=== PATIENT | female | born 1990 | race Caucasian/White ===

== ENCOUNTER 2020-06-22 13:46 | Outpatient (REF) | payer OTHER, SELFPAY | END 2020-06-22 13:47 | disposition home or self-care (01) | LOC: HO.LAB 13:46 | PROVIDERS: PCP Internal Medicine; Visit Provider Internal Medicine | DX: Z20.828 Contact with and (suspected) exposure to other viral communicable diseases (principal) | CPT/HCPCS: C9803; U0003 ==

== ENCOUNTER 2020-08-19 09:52 | Outpatient (REF) | payer OTHER, MEDICAID, SELFPAY ==
--- NOTE | ~2020-08-19 | XR_ITS ---
EXAMINATION: XR ANKLE, LEFT CLINICAL INFORMATION: Left ankle pain. COMPARISON: None TECHNIQUE: AP, lateral, and mortise views of the left ankle. FINDINGS: Mild asymmetric soft tissue swelling is seen laterally. No acute fracture or dislocation is seen. The ankle joint and mortise are intact. The tarsal bones are normally aligned. XR/XR ankle LT min 3V IMPRESSION: Mild asymmetric lateral soft tissue swelling without acute underlying abnormality.
== END 2020-08-19 09:53 | disposition home or self-care (01) ==
LOC: HO.HOSX 09:52
PROVIDERS: Visit Provider Physician Assistant
DX: S93.402A Sprain of unspecified ligament of left ankle, initial encounter (principal)
CPT/HCPCS: 73610; 99202

== ENCOUNTER 2020-09-28 09:55 | Outpatient (RCR) | payer OTHER, SELFPAY ==
--- NOTE | 2020-09-28 12:40 | MHC.PT.EP ---
[facility] [place] [facility] [place] [facility] [place] Office [address] Troy Herrera [address] [phone] F: [phone] F: [phone] F: [phone] F: [phone] Physical Therapy Plan of Care Date of Evaluation: 09/28/20 Date of Surgery: N/A Diagnosis: Sprain of Unspecified Ligament of Unspecified Ankle L Ankle Sprain Assessment: Gretchen is a 30-year-old female being referred to physical therapy following a sprain of her L ankle after slipping on black ice. She presents with deficits in LE strength, L Ankle ROM, impaired gait and impaired posture. She would benefit from skilled physical therapy to address the aforementioned impairments and increase her tolerance to standing, walking, stair-climbing, and running as needed for ADLs, work duties, and playing softball. Gretchen is motivated to participate in therapy to eliminate her ankle pain and enable her to return to her PLOF. Frequency and Duration: The patient will be seen 2 visits per week for 4 weeks Short Term Goals: -Pt will ambulate with proper gait mechanics and equal weight-bearing through her B LE within 2 weeks. -Pt will be able to work an 8-hour shift with <2/10 pain in her ankle within 3 weeks. Wet End Helper Goals: -Pt will be able to participate in a full softball game with <2/10 pain in her ankle within 4 weeks. -Pt will be independent with [facility] for symptom management and maintenance following discharge within 4 weeks. Treatment Plan: Modalities to reduce pain, spasms and effusion. Manual therapy to restore motion and function. Therapeutic exercise to improve strength and flexibility. Neuromuscular re-education for posture and balance. Therapeutic activities to return to functional activities of daily living. Electronically signed by: Judy Rangel, PT, DPT Please sign and return to therapist. Thank you for your referral.
--- NOTE | 2020-11-01 15:42 | MHC.PT.DC ---
[facility] [place] Office [place] Office [place] Office [address] Her[address] 140 [facility] [phone] F: [phone] F: [phone] F: [phone] F: [phone] Physical Therapy Discharge Report Diagnosis: Sprain of Unspecified Ligament of Unspecified Ankle L Ankle Sprain Date of Surgery: N/A Date of Evaluation: 09/28/20 Date of Discharge: 11/01/20 Treatments to Date: 1 Cancellations to Date: 0 No Shows to Date: 0 Discharge Status: Patient Elected to Stop Discharge Summary: Gretchen did not make any PT appointments after her evaluation. Attempted to call her several times for appointments but she did not return any calls. She was therefore d/c from therapy. Electronically signed by: Judy Rangel, PT, DPT Please sign and return to therapist. Thank you for your referral.
== END 2020-11-01 15:42 | disposition other institution (70) ==
LOC: HO.PT 09:55
PROVIDERS: PCP Internal Medicine; Visit Provider Physician Assistant
DX: S93.409A Sprain of unspecified ligament of unspecified ankle, initial encounter (principal)
CPT/HCPCS: 97110; 97140; 97161

== ENCOUNTER 2021-07-20 13:14 | Emergency (ER) | payer OTHER, SELFPAY ==
--- NOTE | ~2021-07-20 | XR_ITS ---
EXAMINATION: XR LUMBOSACRAL SPINE CLINICAL INFORMATION: Slip and fall with back pain COMPARISON: None TECHNIQUE: Three views of the lumbosacral spine. FINDINGS: There are 5 nonrib bearing lumbar vertebra. The bony texture and alignment is satisfactory. No acute fracture, spinal listhesis, spondylolysis. Pedicles intact. Disc spaces maintained. Sacroiliac joints unremarkable. XR/XR lumbar spine 2-3V IMPRESSION: No acute fracture, spondylolisthesis, or spondylolysis of lumbar spine.
[2021-07-20 14:30] VITALS: BP 122/82; PULSE 80; RESP 19; TEMP 36.6; O2SAT 98; BMI 26.1
[2021-07-20] MEDS: Ibuprofen 600 MG TABLET PO (14:37)
[2021-07-20 15:56] VITALS: BP 114/73; PULSE 68; RESP 18; TEMP 36.5; O2SAT 99
--- NOTE | 2021-07-20 16:24 | ED.BACK ---
HPI - Back Pain/Injury General Chief Complaint: Back Pain/Injury Stated Complaint: Lower back pain/sent from urgent care Time Seen by Provider: 07/20/21 15:49 Source: patient Mode of arrival: ambulatory Limitations: no limitations History of Present Illness HPI Narrative: 30-year-old female with a history of chronic back pain here with reports of lower back pain after slip and fall on the ice 2 days ago. Patient tells me that she went to [facility] and was told that her x-ray was abnormal and she was sent into the ER for further evaluation. She denies any radiation of pain. She denies any associated numbness, tingling, saddle anesthesia, bowel or bladder incontinence. No fevers or chills and the patient is ambulatory. Related Data Home Medications Medication Instructions Recorded Confirmed citalopram [Celexa] PO 08/19/20 dupilumab 200 mg/1.14 mL 200 mg SUBCUT Q2W 08/19/20 subcutaneous syringe (Dupixent) topiramate PO 08/19/20 Previous Rx's Medication Instructions Recorded lidocaine 5 % topical patch 1 patch TOPICAL DAILY #15 ea 07/20/21 (Lidoderm) methocarbamol 750 mg tablet 750 mg PO Q6H PRN #10 tab 07/20/21 naproxen 500 mg tablet 500 mg PO BID PRN #20 tab 07/20/21 Allergies Allergy/AdvReac Type Severity Reaction Status Date / Time shellfish derived Allergy Unknown UNKNOWN Unverified 03/18/20 16:18 [SHELLFISH DERIVED] Review of Systems Review of Systems: Yes all other systems are reviewed and are negative Constitutional: Constitutional: Reports no additional constitutional complaints, Denies body ache(s), Denies chills, Denies fever(s), Denies headache(s) and Denies weakness Eyes: Eyes: Reports no additional eye complaints and Denies change in vision ENT: Reports system reviewed and no additional complaints, except as documented, Denies dizziness, Denies headache(s), Denies nasal congestion, Denies nasal discharge and Denies neck pain Cardiovascular: Cardiovascular: Reports no additional cardiovascular complaints, Denies chest pain, Denies leg edema and Denies dyspnea Respiratory: Respiratory: Reports no additional respiratory complaints, Denies cough and Denies dyspnea Gastrointestinal: Gastrointestinal: Reports no additional gastrointestinal complaints, Denies abdominal pain, Denies diarrhea, Denies nausea and Denies vomiting Genitourinary: Genitourinary: Reports no additional female genitourinary complaints and Denies urinary incontinence Musculoskeletal: Musculoskeletal: Reports no additional musculoskeletal complaints, Reports back pain, Denies arthralgias, Denies joint swelling, Denies neck pain, Denies numbness and Denies tingling Integumentary/Breasts: Skin/Breast: Reports system reviewed and no additional complaints, except as docu and Denies rash Neurologic: Reports system reviewed and no additional complaints, except as documented, Denies Abnormal speech present, Denies dizziness, Denies headache(s), Denies numbness, Denies tingling and Denies weakness PMFSH Past Medical History Attestation statement: The following information was validated with the patient. 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 Physical Exam Vital Signs: Vital Signs: Last Vital Signs Temp 97.7 F 07/20/21 15:56 Pulse 68 07/20/21 15:56 Resp 18 07/20/21 15:56 BP 114/73 07/20/21 15:56 Pulse Ox 99 07/20/21 15:56 BMI result Body Mass Index 26.1 Const: General: cooperative, healthy appearing, comfortable and no acute distress Orientation/consciousness: patient oriented x3 Limitations: no limitations HENMT: Head: Yes normal to inspection Ears: hearing grossly normal bilaterally General nose exam: Normal external nose present Face and sinus: Yes normal facial exam Mouth: Normal oral and palatal mucosa present Throat: Yes posterior oropharynx normal Eyes: General: appearance normal, both eyes and all related structures Pupils: Equal, round and reactive pupils present Neck: Neck: Yes normal visual inspection Chest: Chest palpation & inspection: normal inspection of the chest Resp: Effort & Inspection: normal respiratory effort Auscultation: clear to auscultation bilaterally Cardio: Rate: regular rate Rhythm: regular rhythm Peripheral pulses: Peripheral pulses 2+ throughout GI: Inspection: Yes normal to inspection Palpation (GI): Soft to palpation and nontender Auscultation: normal bowel sounds Back/Spine/Pelvis: Other: Tenderness over the lumbar mid spine with no step-offs or deformities. Pain is worsened with bilateral straight leg raise Thoracic/Lumbar Spine: thoracic and lumbar spine normal to inspection Skin: General skin exam: no rashes or lesions noted Neuro: General: patient oriented x3, no focal motor deficits and normal sensation to monofilament Cranial nerves: Yes CN's II-XII intact bilaterally, Yes Equal, round and reactive pupils present, Yes Bilaterally intact EOM present, Yes Nystagmus not present, Yes Normal facial strength present and Yes Midline tongue present Cognition (Neuro): normal cognition Speech: No Abnormal speech present Gait exam (Neuro): Normal gait present Motor exam (neuro): 5/5 motor strength present throughout Sensory Exam: Normal double simultaneous stimulation for sensation Deep tendon reflexes (DTR's): Right patellar reflex intensity grade: 2+ and Left patellar reflex intensity grade: 2+ Extrem: General: Yes normal to inspection Course Course Course Narrative: 30-year-old female with a history of chronic back pain here with reports of low back pain after slip and fall on ice 2 days ago. Sent from urgent care with concern for abnormal x-ray. X-ray is not available. Will check lumbar films here. Neurologically intact. No red flag symptoms 1645-x-ray showed no bony abnormalities. Likely contusion. Reviewed worrisome signs and symptoms of when to return to the emergency department. Comfortable discharge home. MDM - Back Pain/Injury Medical Records Attestation: I reviewed the patient's medical records. Lab Data Attestation: I reviewed the patient's lab results. Imaging Data lumbar x-ray: Attestation: I personally reviewed and interpreted this imaging study as follows: Radiologist's impression: Launch?Image [address] [address] XRay Report Signed Patient: Gretchen iTneo MR#: [id number] : 1990 Acct:[id number] Age/Sex: 30 / F ADM Date: 07/20/21 Loc: HO.ED Attending Dr: Ordering Physician: Louisa Lim NP Date of Service: 07/20/21 Procedure(s): XR lumbar spine 2-3V Accession Number(s): [id number] cc: Louisa Lim BATON TWIRLER~ EXAMINATION: XR LUMBOSACRAL SPINE CLINICAL INFORMATION: Slip and fall with back pain COMPARISON: None TECHNIQUE: Three views of the lumbosacral spine. FINDINGS: There are 5 nonrib bearing lumbar vertebra. The bony texture and alignment is satisfactory. No acute fracture, spinal listhesis, spondylolysis. Pedicles intact. Disc spaces maintained. Sacroiliac joints unremarkable. XR/XR lumbar spine 2-3V IMPRESSION: No acute fracture, spondylolisthesis, or spondylolysis of lumbar spine. Discharge Plan Discharge Clinical Impression: Lumbar contusion Patient Disposition: Home, Self-Care Instructions: Acute Low Back Pain (ED), Contusion in Adults (ED), Lower Back Exercises (ED) Additional Instructions: Ice to the area Gentle stretching Follow-up with yourr doctor in 5-7 days if still having symptoms Prescriptions: New methocarbamol 750 mg tablet 750 mg PO Q6H PRN (Reason: muscle spasm) Qty: 10 RF: 0 naproxen 500 mg tablet 500 mg PO BID PRN (Reason: pain) Qty: 20 RF: 0 lidocaine [Lidoderm] 5 % adhesive patch,medicated 1 patch topical DAILY Qty: 15 RF: 0 Referrals: Wendie Johnson MD [Primary Care Provider] - 2 days Stand Alone Forms: Work/School Release
== END 2021-07-20 16:58 | disposition home or self-care (01) ==
PROVIDERS: Emergency Provider Emergency Medicine Emergency Medical Services; PCP Internal Medicine
DX: S30.0XXA Contusion of lower back and pelvis, initial encounter (principal); M54.50 Low back pain, unspecified; W00.0XXA Fall on same level due to ice and snow, initial encounter; Y93.9 Activity, unspecified; Y92.9 Unspecified place or not applicable; Y99.9 Unspecified external cause status; Z79.899 Other long term (current) drug therapy
CPT/HCPCS: 72100; 99283; 99284

== ENCOUNTER 2022-01-20 01:00 | Emergency (ER) | payer OTHER, SELFPAY ==
--- NOTE | ~2022-01-20 | XR_ITS ---
EXAMINATION: XR ANKLE, LEFT XR FOOT, LEFT CLINICAL INFORMATION: Pain COMPARISON: None TECHNIQUE: 3 views of the left ankle. 3 views of the left foot. FINDINGS: Alignment throughout the foot and ankle is anatomic. No acute fracture is seen. No significant focal soft tissue abnormality identified. XR/XR foot LT min 3V IMPRESSION: No acute findings identified in the left ankle or foot.
--- NOTE | ~2022-01-20 | XR_ITS ---
EXAMINATION: XR ANKLE, LEFT XR FOOT, LEFT CLINICAL INFORMATION: Pain COMPARISON: None TECHNIQUE: 3 views of the left ankle. 3 views of the left foot. FINDINGS: Alignment throughout the foot and ankle is anatomic. No acute fracture is seen. No significant focal soft tissue abnormality identified. XR/XR ankle LT min 3V IMPRESSION: No acute findings identified in the left ankle or foot.
[2022-01-20 01:13] VITALS: BP 119/69; PULSE 105; RESP 18; TEMP 36.6; O2SAT 97; BMI 26.6
--- NOTE | 2022-01-20 01:18 | ED_ITS ---
HPI - Extremity Injury (Lower) General Chief Complaint: Extremity Injury, Lower Stated Complaint: left ankle pain Time Seen by Provider: 01/20/22 01:18 Source: patient Mode of arrival: ambulatory Limitations: no limitations History of Present Illness MD complaint: ankle injury Onset (ago): hour(s) (several ) Injury: Left: ankle and foot Type of Injury: blunt Place: street/outdoors Severity: moderate Relieving factors: immobilization Exacerbating factors: palpation Context: direct blow (hit with line drive while pitching) Associated symptoms: swelling Other symptoms: none Related Data Home Medications Medication Instructions Recorded Confirmed citalopram [Celexa] PO 08/19/20 dupilumab 200 mg/1.14 mL 200 mg subcut Q2W 08/19/20 subcutaneous syringe (Dupixent) topiramate PO 08/19/20 Previous Rx's Medication Instructions Recorded lidocaine 5 % topical patch 1 patch topical DAILY #15 ea 07/20/21 (Lidoderm) methocarbamol 750 mg tablet 750 mg PO Q6H PRN muscle spasm #10 07/20/21 tabs naproxen 500 mg tablet 500 mg PO BID PRN pain #20 tabs 07/20/21 cyclobenzaprine 10 mg tablet 10 mg PO TID PRN muscle spasm #14 01/20/22 tabs ibuprofen 600 mg tablet 600 mg PO Q6H PRN pain #30 tabs 01/20/22 Allergies Allergy/AdvReac Type Severity Reaction Status Date / Time shellfish derived Allergy Unknown UNKNOWN Verified 01/20/22 01:13 [SHELLFISH DERIVED] Review of Systems Review of Systems: Constitutional : No Fever, No Chills ENT/Mouth : No Ear Pain, No Hoarseness, No sore throat Eyes: No Eye Pain, No Swelling, No Redness, No Foreign Body Cardiovascular : No Chest Pain, No SOB Respiratory : No Cough, No Dyspnea Gastrointestinal : No Nausea, No Vomiting, No Diarrhea, No abdominal Pain Genitourinary : No Dysuria, No Hematuria Musculoskeletal : positive joint pain, No Myalgias, pos Joint Swelling Skin : No Skin lacerations, No rash Neuro : No Weakness, No Numbness, No Loss of Consciousness, No Dizziness, No Headache PMFSH Past Medical History Medical History No pertinent past medical history Surgical History History of surgery on arm Social History Social History (Updated 01/20/22 @ 01:42 by Preethi Power DO) Patient Tobacco Use Status: Never used Tobacco Advance Directives: No Advance Directives Information Provided: No Current occupational status: employed 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 Oriented X3. No acute distress. Eyes: Pupils equal, round and reactive to light. ENT: Pharynx normal. Neck: Normal inspection. Neck supple. CVS: Normal heart rate and rhythm. Pulses normal. Respiratory: No respiratory distress. Breath sounds normal. Abdomen: Soft and non-tender. Skin: Skin warm and dry. Normal skin color. Normal skin turgor. Extremities: No lower extremity edema. L dorsum of foot ttp mild swelling - ttp along talus as well distal NV intact compartments on leg are soft and compressible Neuro: Oriented X 3. No motor deficit. No sensory deficit. Course Course Course Narrative: negative xrays stable for DC MDM - Extremity Injury (Lower) MDM Narrative Medical decision making narrative: 31 yo female L foot and ankle pain after line drive while playing softball she is NV intact compartments in leg are soft and compressible at this time will obtain xrays of foot and ankle. PO medications for pain. Discharge Plan Discharge Clinical Impression: Contusion of foot Patient Disposition: Home, Self-Care Instructions: Foot Contusion (ED) Additional Instructions: return to ED for any worsening symptoms or concerns repeat xrays with your primary care if not better in 3 days Prescriptions: New cyclobenzaprine 10 mg tablet 10 mg PO TID PRN (Reason: muscle spasm) Qty: 14 0RF ibuprofen 600 mg tablet 600 mg PO Q6H PRN (Reason: pain) Qty: 30 0RF No Action methocarbamol 750 mg tablet 750 mg PO Q6H PRN (Reason: muscle spasm) Qty: 10 0RF naproxen 500 mg tablet 500 mg PO BID PRN (Reason: pain) Qty: 20 0RF lidocaine [Lidoderm] 5 % adhesive patch,medicated 1 patch topical DAILY Qty: 15 0RF Rx Instructions: leave on most painful area for up to 12 hrs Stand Alone Forms: Work/School Release
[2022-01-20] MEDS: Cyclobenzaprine HCl 10 MG TABLET PO (01:44)
[2022-01-20] MEDS: Ibuprofen 600 MG TABLET PO (01:44)
[2022-01-20] MEDS: Acetaminophen 325 MG TABLET 650 MG PO (01:45)
== END 2022-01-20 02:49 | disposition home or self-care (01) ==
PROVIDERS: Emergency Provider Emergency Medicine
DX: S90.32XA Contusion of left foot, initial encounter (principal); W21.07XA Struck by softball, initial encounter; Y93.64 Activity, baseball; Y92.320 Baseball field as the place of occurrence of the external cause; Y99.9 Unspecified external cause status
CPT/HCPCS: 73610; 73630; 99283

== ENCOUNTER 2023-01-15 12:04 | Outpatient (REF) | payer OTHER, SELFPAY ==
--- NOTE | ~2023-01-15 | XR_ITS ---
History: Pain. Exams: AP standing views of both knees and 2 views right knee. FINDINGS: Normal alignment. No focal bony lesion. No varus or valgus deformity. No radiopaque loose body. XR/XR knee RT 2V IMPRESSION: Normal right knee.
--- NOTE | ~2023-01-15 | XR_ITS ---
History: Pain. Exams: AP standing views of both knees and 2 views right knee. FINDINGS: Normal alignment. No focal bony lesion. No varus or valgus deformity. No radiopaque loose body. XR/XR knee standing BI IMPRESSION: Normal right knee.
== END 2023-01-15 12:05 | disposition home or self-care (01) ==
LOC: HO.HOSX 12:04
PROVIDERS: Visit Provider Physician Assistant
DX: M17.11 Unilateral primary osteoarthritis, right knee (principal); M25.562 Pain in left knee
CPT/HCPCS: 73560; 73565; 99212

== ENCOUNTER 2023-01-15 12:37 | Outpatient (AMB) | payer OTHER, SELFPAY ==
[2023-01-15 12:47] VITALS: BMI 26.6
--- NOTE | 2023-01-15 12:47 | MHC.OFFVIS ---
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 States pain started in September 2022while playing softball. States she felt some thing pulled in her knee. Has numbness radiating down her leg. Has swelling with over use and pressure under her knee cap. States she is very active and this limits her activity. Increase pain with stairs and walking. States no prior treatment. Patient states she is also having hand pain. 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 She states she was playing softball when she felt a pulling sensation in her knee as she planted the foot and twisted. . She states she has numbness in her knee which radiates down to her leg. She also c/o swelling and pressure in her knee with overuse. Her pain is aggravated with stair use and ambulation. She has not had any treatment in the past. 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 Review of Systems Const All systems reviewed & are unremarkable except as noted in HPI and below Physical Exam Vital Signs: BMI result Body Mass Index 26.6 Const General: cooperative, healthy appearing, comfortable, no acute distress, well developed and alert Orientation/consciousness: patient oriented x3 HEENT Head: Yes normal to inspection, Yes normocephalic and Yes atraumatic Eyes General: appearance normal, both eyes and all related structures Resp Effort & Inspection: normal respiratory effort and able to speak in complete sentences Cardio Rate: regular rate Peripheral pulses: Peripheral pulses 2+ throughout GI Palpation (GI): Soft to palpation Skin Lesions: no lesions Rashes: no rashes Neuro General: patient oriented x3 Extrem Other: Right knee: Skin intact, no erythema or joint effusion. Lateral retropatellar tenderness present. Full ROM with crepitus. Negative Kelsie?s. No ligamentous laxity. NVI. Results Reviewed Results Reviewed: xrays of the right knee obtained on 01/15/23 show mild lateralizatin of the patella. Assessment & Plan Assessment & Plan (1) Patellofemoral arthritis of right knee: Code(s): M17.11 - Unilateral primary osteoarthritis, right knee Plan We discussed options which include PT, NSAIDs and injections. The patient will defer on the injection today and proceed with PT and NSAIDs. She was also fit for an off the shelf knee brace in the office today. If symptoms persist, the patient will contact me for an injection, otherwise, PRN. Orders: Orders XR knee RT 2V Today M25.569 - Pain in unspecified knee XR knee standing BI Today M25.561 - Pain in right knee, M25.562 - Pain in left knee PT Evaluation and Treatment Today M17.11 - Unilateral primary osteoarthritis, right knee Patient Instructions: Scribed for Mauricio Darden PA-C, by Kieran Hawkins medical administrative specialist, on 01/15/2023 at 12:30 AM EST. I, Mauricio Darden PA-C, have personally reviewed and agree with the information entered by the scribe. Coding Level of Care Code New Pt Level 3 (88958) Diagnoses Patellofemoral arthritis of right knee M17.11
== END 2023-01-15 13:26 | disposition home or self-care (01) ==
PROVIDERS: Visit Provider Physician Assistant
DX: M17.11 Unilateral primary osteoarthritis, right knee (principal)
CPT/HCPCS: 99213

== ENCOUNTER 2023-01-25 11:16 | Outpatient (REF) | payer OTHER, SELFPAY ==
--- NOTE | ~2023-01-25 | XR_ITS ---
EXAMINATION: XR HAND, RIGHT CLINICAL INFORMATION: Right hand pain COMPARISON: September 02, 2017. TECHNIQUE: PA, lateral, and oblique views of the right hand. FINDINGS: The bones and soft tissues are normal. No fracture. Alignment is anatomic. Joint spaces are maintained. No erosions or soft tissue calcifications. XR/XR hand RT min 3V IMPRESSION: No significant right hand abnormality identified.
== END 2023-01-25 11:17 | disposition home or self-care (01) ==
LOC: HO.HOSX 11:16
PROVIDERS: Visit Provider Physician Assistant
DX: S63.91XA Sprain of unspecified part of right wrist and hand, initial encounter (principal); W19.XXXA Unspecified fall, initial encounter; Y93.9 Activity, unspecified; Y92.9 Unspecified place or not applicable; Y99.9 Unspecified external cause status
CPT/HCPCS: 73130; 99212

== ENCOUNTER 2023-01-25 14:29 | Outpatient (AMB) | payer OTHER, SELFPAY ==
[2023-01-25 14:34] VITALS: BMI 26.6
--- NOTE | 2023-01-25 14:34 | A.OFFVIS_ITS ---
Intake Vital Signs 01/25/23 14:34 Height 5 ft 6 in Weight 165 lb BMI 26.6 Intake Visit Reasons: Newprob-Right hand pain Intake Note: Gretchen a 32 year old right hand dominant female who presents today for an evaluation of right hand pain. Patient reports a few months ago she has hit her hand and fell. Currently has intermittent pain that is getting worse. Occasional numbness and tingling that radiates in her wrist. No previous tx. Allergies shellfish derived [SHELLFISH DERIVED] Allergy (Unknown, Verified 01/25/23 14:40) UNKNOWN HPI Newprob-Right hand pain HPI Details 32-year-old right hand dominant female who presents to the office today for evaluation of right-hand pain s/p hitting her hand and falling. She states she has worsening intermittent pain in her hand. She also c/o occasional numbness and tingling in her hand which radiates down to her wrist. She has not had any treatment in the past. [facility] Medical History No pertinent past medical history Surgical History History of surgery on arm Social History Patient Tobacco Use Status: Never used Tobacco Current occupational status: employed Current occupation: [employer] - Right Handed Review of Systems Const All systems reviewed & are unremarkable except as noted in HPI and below Physical Exam Vital Signs: BMI result Body Mass Index 26.6 Extrem Other: Right hand: Normal to inspection. She does have very mild tenderness at the base of 4th and 5th metacarpal. There is no bony abnormality. She is able to make a full fist and fully extend all digits. There is no scissoring or crossing of the digits. Results Reviewed Results Reviewed: X-rays of the right hand obtained in the office today show right and do show what apparat to be an old healing fracture at the base of the 4th metacarpal and subtle loosening at the base of the 5th. This may represent an old fracture. Assessment & Plan Assessment & Plan (1) Sprain of right hand: Code(s): S63.91XA - Sprain of unspecified part of right wrist and hand, initial encounter Plan I discussed with her the findings on x-rays. There is no surgical intervention warranted and I do not feel she needs a brace as this has healed. I encouraged her to work on maintaining her ROM and quality process lead strength. She will see me back if symptoms worsen. Orders: Orders XR hand RT min 3V Today M79.641 - Pain in right hand Medications: New celecoxib (Celebrex) 200 mg PO BID 60 caps 3RF 30 days Patient Instructions: Scribed for Mauricio Darden PA-C, by Kieran Hawkins medical billing instructor, on 01/25/2023 at 2:45 PM DAVIS. Mauricio Garza PA-C, have personally reviewed and agree with the information entered by the scribe. Coding Level of Care Code Est Pt Level 3 (03245) Diagnoses Sprain of right hand S63.91XA
== END 2023-01-25 15:40 | disposition home or self-care (01) ==
PROVIDERS: Visit Provider Physician Assistant
DX: S63.91XA Sprain of unspecified part of right wrist and hand, initial encounter (principal)
CPT/HCPCS: 99213

== ENCOUNTER 2024-09-11 07:22 | Emergency (ER) | payer OTHER, SELFPAY ==
--- NOTE | 2024-09-11 | ECG_ITS ---
Test Reason : SOB/CHEST PAIN Blood Pressure : */* mmHG Vent. Rate : 100 BPM Atrial Rate : 100 BPM P-R Int : 150 ms QRS Dur : 80 ms QT Int : 358 ms P-R-T Axes : 46 15 13 degrees QTcB Int : 461 ms Artifact in tracing Normal sinus rhythm Cannot rule out Anterior infarct , age undetermined Borderline ECG No previous ECGs available Referred By: Generic ED Physician Electronically Signed By: NORTH MALDONADO
--- NOTE | ~2024-09-11 | XR_ITS ---
EXAMINATION: XR CHEST 2 VIEWS HISTORY: cough/asthma COMPARISON: Comparison is made with the prior examination dated 03/08/2019. FINDINGS: PA and lateral views of the chest are submitted. The lungs are expanded and clear. There is no pleural effusion, pneumothorax, or pulmonary vascular congestion. The heart is normal in size. The bones are intact. XR/XR chest 2V IMPRESSION: No acute cardiopulmonary abnormality. Electronically signed by: Martin Dalton MD 09/11/2024 08:41 AM EDT
[2024-09-11 07:34] VITALS: BP 150/83; PULSE 94; RESP 22; TEMP 36.8; O2SAT 98; BMI 33.6
[2024-09-11 07:45] VITALS: BP 127/95; PULSE 110; RESP 20; TEMP 36.7; O2SAT 98
[2024-09-11] MEDS: Albuterol Sulfate 2.5 MG, Albuterol/Iprat 2.5/0.5MG 3 ML 3 ML INHALE (07:49)
[2024-09-11 07:50] VITALS: PULSE 79; RESP 21; O2SAT 96
[2024-09-11 07:55] LABS: MANUAL DIFF FLAG NO
[2024-09-11 07:56] LABS: Basophils Absolute Auto 0.1 X10*3/uL (0.0-0.2); Basophils Percent Auto 0.5 % (0-2); Eosinophils Absolute Auto 0.5 X10*3/uL (0.0-0.4); Eosinophils Percent Auto 3.8 % (0-4); Hematocrit 44.5 % (37.0-47.0); Hemoglobin 15.5 g/dl (12.0-16.0); Imm Gran Abs Auto 0.08 X10*3/uL (0.00-0.03); Imm Gran Pct Auto 0.6 % (0.0-0.4); Lymphocytes Absolute Auto 2.8 X10*3/uL (1.2-4.9); Lymphocytes Percent Auto 20.7 % (20-40); Mean Corpuscular HGB Conc 34.8 g/dl (31.0-35.0); Mean Corpuscular Hemoglobin 30.9 pg (27.0-33.0); Mean Corpuscular Volume 88.6 fL (80.0-98.0); Mean Platelet Volume 10.9 fL (9.4-12.3); Monocytes Percent Auto 7.7 % (2-11); Neutrophils Absolute Auto 8.9 x10*3/uL (2.0-8.3); Neutrophils Percent Auto 66.7 % (45-73); Platelet Count 264 X10*3/uL (160-400); Red Blood Count 5.02 X10*6/uL (4.20-5.50); Red Cell Distribution Width 13.2 % (11.0-16.0); White Blood Count 13.3 X10*3/uL (4.8-10.8)
--- NOTE | 2024-09-11 07:56 | ED.GENADULT ---
HPI - General Adult General Chief complaint: Upper Respiratory Symptoms Stated complaint: Chest pain, SOB Time Seen by Provider: 09/11/24 07:35 Source: patient, RN notes reviewed and old records reviewed Mode of arrival: ambulatory History of Present Illness ED Provider: Gena Huitron PA-C HPI narrative: 34-year-old female with a past medical history of asthma presenting to the ED complaining of persistent cough, SOB, sinus pressure, and bilateral ear pain x2 days. Admits to poor compliance with inhaler however has been using neb machine. Denies recent steroids. Denies fever, chills, sore throat, chest pain, travel, sick contacts. Related Data Home Medications ?Medication ?Instructions ?Recorded ?Confirmed citalopram [Celexa] PO 08/19/20 dupilumab 200 mg/1.14 mL 200 mg subcut Q2W 08/19/20 subcutaneous syringe ([employer]) topiramate PO 08/19/20 omeprazole 20 mg capsule,delayed 20 mg PO DAILY 01/25/23 release Previous Rx's ?Medication ?Instructions ?Recorded lidocaine 5 % topical patch 1 patch topical DAILY #15 ea 07/20/21 (Lidoderm) methocarbamol 750 mg tablet 750 mg PO Q6H PRN muscle spasm #10 07/20/21 tabs naproxen 500 mg tablet 500 mg PO BID PRN pain #20 tabs 07/20/21 cyclobenzaprine 10 mg tablet 10 mg PO TID PRN muscle spasm #14 01/20/22 tabs ibuprofen 600 mg tablet 600 mg PO Q6H PRN pain #30 tabs 01/20/22 celecoxib 200 mg capsule (Celebrex) 200 mg PO BID 30 days #60 caps 01/25/23 albuterol sulfate 90 mcg/actuation 2 puff inhalation Q4-6H PRN 09/11/24 aerosol inhaler shortness of breath or wheezing #6.7 grams amoxicillin 875 mg-potassium 1 tab PO BID 7 days #14 tabs 09/11/24 clavulanate 125 mg tablet benzonatate 100 mg capsule 100 mg PO TID PRN cough #14 caps 09/11/24 prednisone 20 mg tablet 40 mg (2 x 20 mg) PO DAILY 5 days 09/11/24 #10 tabs Allergies Allergy/AdvReac Type Severity Reaction Status Date / Time shellfish derived Allergy Unknown UNKNOWN Verified 09/11/24 07:37 [SHELLFISH DERIVED] Review of Systems Review of Systems: Yes all other systems are reviewed and are negative Constitutional: Constitutional: Reports as per [facility] Past Medical History Attestation statement: The following information was validated with the patient. Source: old records reviewed Medical History No pertinent past medical history Surgical History History of surgery on arm Social History Social History Patient Tobacco Use Status: Never used Tobacco Current occupational status: employed Current occupation: [email or web address] - Right Handed Physical Exam ED Vital Signs: Vital Signs - 24 hr 09/11/24 07:34 09/11/24 07:45 09/11/24 07:50 Temperature 98.3 F 98.1 F Pulse Rate 94 110 H 79 Respiratory Rate 22 H 20 21 H Blood Pressure 150/83 H 127/95 H Pulse Oximetry 98 98 Oxygen Delivery Method Room Air Room Air 09/11/24 08:23 09/11/24 09:45 09/11/24 10:17 Temperature 98.1 F Pulse Rate 87 87 Respiratory Rate 18 18 Blood Pressure 127/95 H Pulse Oximetry 96 98 98 Oxygen Delivery Method Room Air Room Air BMI result Body Mass Index 33.6 Const General: cooperative, healthy appearing and no acute distress Orientation/consciousness: patient oriented x3 Limitations: no limitations HENMT Head: Yes normal to inspection and Yes atraumatic Ears: hearing grossly normal bilaterally, external ears normal and TM abnormal bulging bilateral, erythematous bilateral and with fluid behind the TM bilateral General nose exam: Normal external nose present Face and sinus: Yes normal facial exam Mouth: Normal oral and palatal mucosa present and no drooling Throat: Yes posterior oropharynx normal, Yes uvula midline, No peritonsillar mass, No uvula laterally displaced and No uvular edema Eyes General: appearance normal, both eyes and all related structures EOM: EOMs intact bilaterally Neck Neck: Yes normal visual inspection and Yes no meningeal signs Resp Effort & Inspection: normal respiratory effort, Actively coughing Quality: actively coughing, no respiratory distress and tachypneic Auscultation: clear to auscultation bilaterally, no crackles and no wheezes Cardio Rate: regular rate Heart sounds: S1 normal heart sound present and S2 normal heart sound present Skin Rashes: no rashes Wounds: no wounds Neuro General: patient oriented x3, tone normal and no meningeal signs Cranial nerves: Yes CN's II-XII intact bilaterally Gait exam (Neuro): Normal gait present Extrem General: Yes normal to inspection and Yes no pedal edema Course Course Course Narrative: -1004-- leukocytosis of 13.3. Labs otherwise reassuring. Viral studies negative. XR chest 2V IMPRESSION: No acute cardiopulmonary abnormality. > On re-evaluation patient reports symptomatic improvement. Lungs CTA after ED bronch protocol. Plan for discharge home. Results discussed with patient including worrisome signs and symptoms and strict return precautions, and when to return to the emergency department. They verbalized understanding and feel safe for discharge at this time. Medications Administered Discontinued Medications Generic Name Dose Route Start Last Admin Trade Name Freq PRN Reason Stop Dose Admin Benzonatate 100 mg 09/11/24 07:45 09/11/24 08:19 Benzonatate 100 Mg Capsule PO 09/11/24 07:46 100 mg ONCE ONE Administration Albuterol Sulfate 2.5 mg/ 0 mg 09/11/24 07:47 09/11/24 07:49 Albuterol/Ipratropium 3 ml INHALE 09/11/24 07:48 1 dose ONCE ONE Administration Hydrocodone Bit/Homatropine Methylb 5 ml 09/11/24 07:45 09/11/24 08:21 Hydrocodone/Homat 5/1.5/5 Ml 5 Ml Syrup PO 09/11/24 07:46 5 ml ONCE ONE Administration Methylprednisolone Sodium Succinate 60 mg 09/11/24 07:44 09/11/24 08:20 Methylprednisolone Sod Succ 125 Mg/2 Ml Vial IVPUSH 09/11/24 07:45 60 mg ONCE ONE Administration Medical Decision Making Medical Decision Making [facility] Narrative: 34-year-old female with a past medical history of asthma presenting to the ED complaining of persistent cough, SOB, sinus pressure, and bilateral ear pain x2 days. On exam mildly tachypneic, dry active cough appreciated, lungs CTA, no appreciable wheezing, bilateral TMs with erythema / bulging and effusion. Concern for asthma exacerbation vs viral illness vs bronchitis. Rule out pneumonia. Concern for acute otitis media. Lower suspicion for mastoiditis or otitis externa Plan: EKG, labs, CXR, viral testing, ED bronch protocol, IV Solu-Medrol, re-evaluate Please refer to course for remaining clinical decision making, interpretation of labs/imaging results, and discussions with consultants and/or family members. Differential Diagnosis Differential Diagnoses: The differential diagnosis associated with the presentation includes As above Admission/Observation Consideration of admission/observation: Escalation of care including admission/observation considered Lab Data MDM Lab Attestation statement: I reviewed the patient's lab results. 09/11/24 07:50 09/11/24 07:50 Labs: Lab Results 09/11/24 Range/Units 07:50 WBC 13.3 H (4.8-10.8) X10*3/uL RBC 5.02 (4.20-5.50) X10*6/uL Hgb 15.5 (12.0-16.0) g/dl Hct 44.5 (37.0-47.0) % MCV 88.6 (80.0-98.0) fL MCH 30.9 (27.0-33.0) pg MCHC 34.8 (31.0-35.0) g/dl RDW 13.2 (11.0-16.0) % Plt Count 264 (160-400) X10*3/uL MPV 10.9 (9.4-12.3) fL Immature Gran % (Auto) 0.6 H (0.0-0.4) % Neut % (Auto) 66.7 (45-73) % Lymph % (Auto) 20.7 (20-40) % Cook % (Auto) 7.7 (2-11) % Eos % (Auto) 3.8 (0-4) % Baso % (Auto) 0.5 (0-2) % Lymph # (Auto) 2.8 (1.2-4.9) X10*3/uL Cook # (Auto) 1.0 (0.1-1.2) X10*3/uL Eos # (Auto) 0.5 H (0.0-0.4) X10*3/uL Baso # (Auto) 0.1 (0.0-0.2) X10*3/uL Abs Immat Gran (auto) 0.08 H (0.00-0.03) X10*3/uL Absolute Neuts (auto) 8.9 H (2.0-8.3) x10*3/uL Absolute Nucleated RBC 0.000 (0.0-0.012) X10*3/uL Nucleated RBC % (auto) 0.0 (0.0-0.2) /100WBC Sodium 140 (135-145) mmol/L Potassium 3.8 (3.3-5.1) mmol/L Chloride 110 H (96-108) mmol/L Carbon Dioxide 22 (22-29) mmol/L Anion Gap 12 (12-20) BUN 12 (9-16) mg/dL Creatinine 0.75 (0.5-1.4) mg/dL Estim Creat Clear Calc 123.4 Estimated GFR > 60 Random Glucose 106 (60-115) mg/dL Calcium 8.7 (8.4-10.2) mg/dL Magnesium 2.1 (1.6-2.6) mg/dL Total Bilirubin 0.7 (0.0-1.0) mg/dL AST 25 (5-31) U/L ALT 25 (0-31) U/L Alkaline Phosphatase 114 (39-117) U/L Total Protein 7.5 (6.5-8.0) g/dL Albumin 4.1 (3.5-5.0) g/dL Influenza Type A (PCR) NEGATIVE (Negative) Influenza Type B (PCR) NEGATIVE (Negative) RSV RNA Qual (PCR) NEGATIVE (Negative) SARS-CoV-2 RNA (RT-PCR) NEGATIVE (Negative) Independent Interpretation I performed an independent interpretation of an: EKG ( my interpretation EKG normal sinus rhythm rate of 100. MS interval 150. No previous EKGs to compare. No STEMI) and Plain X-Ray Radiology Impression Discussion of test interpretation with radiology: I have reviewed the radiologist's reading. External Record Review External record reviewed: Inpatient record, Office record, Outpatient record, Prior outpatient labs, Prior outpatient radiology, Primary care record and Outside ED record Tests considered The following testing was considered but not selected: As above Prescription Management I considered prescription management with: Other Chronic Conditions Patient?s care impacted by: Other ( asthma) Social Determinants Patient?s care significantly limited by Social Determinants of Health including: Other Social Determinant of Health Discharge Plan Discharge Clinical Impression: Otitis media, Asthma Patient Disposition: Home, Self-Care Instructions: Asthma (DC), Ear Infection (ED) Additional Instructions: Your blood work, viral testing, and x-ray are reassuring You do have an ear infection. Augmentin as an antibiotic please take as prescribed until completion Risa Dillard for cough, take as needed Prednisolone will help with your asthma Please continue to use your neb machine and inhalers Have close follow up with her doctor If her symptoms persist or worsen or pain becomes unbearable, you have constant worsening chest pain /shortness of breath or fever unresolved with medications return to the ED Prescriptions: New prednisone 20 mg tablet 40 mg PO DAILY 5 Days Qty: 10 0RF benzonatate 100 mg capsule 100 mg PO TID PRN (Reason: cough) Qty: 14 0RF albuterol sulfate 90 mcg/actuation HFA aerosol inhaler 2 puff inhalation Q4-6H PRN (Reason: shortness of breath or wheezing) Qty: 6.7 0RF amoxicillin-pot clavulanate 875-125 mg tablet 1 tab PO BID 7 Days Qty: 14 0RF No Action methocarbamol 750 mg tablet 750 mg PO Q6H PRN (Reason: muscle spasm) Qty: 10 0RF naproxen 500 mg tablet 500 mg PO BID PRN (Reason: pain) Qty: 20 0RF lidocaine [Lidoderm] 5 % adhesive patch,medicated 1 patch topical DAILY Qty: 15 0RF Rx Instructions: leave on most painful area for up to 12 hrs cyclobenzaprine 10 mg tablet 10 mg PO TID PRN (Reason: muscle spasm) Qty: 14 0RF ibuprofen 600 mg tablet 600 mg PO Q6H PRN (Reason: pain) Qty: 30 0RF citalopram PO topiramate PO Dupixent Syringe 200 mg/1.14 mL syringe 200 mg subcut Q2W omeprazole 20 mg capsule,delayed release(DR/EC) 20 mg PO DAILY celecoxib [Celebrex] 200 mg capsule 200 mg PO BID 30 Days Qty: 60 3RF Referrals: Wendie Johnson MD [Primary Care Provider] - 5 days Stand Alone Forms: Work/School Release Interventions: ED Discharge Assessment Last Done: 09/11/24 10:17 Discharge Date/Time: 09/11/24 10:20 Print Language: Chinese
--- OUTSIDE RECORDS SUMMARY | 2024-09-11 08:09 | XMS_ITS | Encounter Summary ---
Author Organization [facility] Address [address] [place] [address] Care Team Providers Care Iron Worker Name Role Phone Wendie Johnson MD Primary Care Provider [phone] Encounter Details Date Type Department Care Team (Late st Contact Info) Description 07/31/2024 Lab Requisition [facility] - Main Lab [address] [place] [address] Kimberley Miranda MD [address] [facility] [address] [place] [address] Acute vaginitis Social History Tobacco Use Types Packs/Day Years Used Date Smoking Tobacco: Every Day Smokeless Tobacco: Never Alcohol Use Standard Drinks/Week Comments Yes 0 (1 standard drink = 0.6 oz pur e alcohol) Comments Unknown Sex and Gender Information Value Date Recorded Sex Assigned at Not on file Legal Sex Female 12:53 PM EST Gender Identity Not on file Sexual Orientation Not on file documented as of this encounter Plan of Treatment Not on file documented as of this encounter Procedures Procedure Name Priority Date/Time Associated Diagnosis Comments VAGINITIS PATHOGENS BY PCR Routine 07/31/2024 12:00 AM EST Acute vaginitis documented in this encounter Results * (ABNORMAL) Vaginitis pathogens molecular study (07/31/2024 12:00 AM EST) Trichomonas vaginalis Negative Negative 08/01/2024 12:47 PM EST [facility] Gardnerella vaginalis Positive(A) Negative 08/01/2024 12:47 PM EST [facility] Cara Species Negative Negative 12:47 PM EST [facility] Swab Vaginal structure / Unknown 07/31/2024 07/31/2024 12:43 PM EST us Kimberley Miranda MD LAB MICROBIOLOGY - GENER AL ORDERABLES Final Result [facility] [address] [place] [address], documented in this encounter Visit Diagnoses Diagnosis Acute vaginitis Unspecified vaginitis and vulvovaginitis documented in this encounter Care Teams Iron Worker Relationship Specialty Start Date End Date Wendie Johnson MD [address] [place] [id number] PCP - General Internal Medicine 10/25/15 documented as of this encounter
--- OUTSIDE RECORDS SUMMARY | 2024-09-11 08:10 | XMS_ITS | Clinical Summary ---
Author Organization [facility] Address [address] [place] [phone] Phone Care Team Providers Care Sales Team Manager Name Role Phone Unavailable Primary Care Provider Unavailabl e Immunizations Immunization Administration Dates Next Due DTP 03/28/1993, 2,1991,09/28 DTaP 5 10/29/1996 HPV, Quadrivalent 11/20/2007,07/24/2007,05/22/20 07 Hep B, ped/adol 10/29/1996,08/13/1996,05/30/1995 Hib (PRP-T) 12/01/1992, 2,1991,09/28 Influenza Split 06/14/2010 Influenza, injectable, trivalent 08/28/2008 MMR 08/13/1996,12/01/1992 Meningococcal Conj (Menactra) MCV4P 01/24/2006 OPV 08/13/1996, 3,1991,09/28 Td (adult) (MBL), 2 Lf tetan us toxoid, PF, adsorbed 03/09/2003 Tdap 05/22/2007 Family History Relation Name Status Comments Father Alive Father: Alive a nd well Mother Alive Mother: Alive a nd well Sister Alive Sister: Alive a nd well Social History Tobacco Use Types Packs/Day Years Used Date Smoking Tobacco: Never Assessed Comments Unknown Sex and Gender Information Value Date Recorded Sex Assigned at Not on file Legal Sex Female 4:39 PM EDT Gender Identity Not on file Sexual Orientation Not on file Last Filed Vital Signs Vital Sign Reading Time Taken Comments Blood Pressure 100/70 06/14/2010 12:00 AM EST Pulse - - Temperature 36.4 ??C (97.5 ??F) 08/25/2011 12:[address] Respiratory Rate - - Oxygen Saturation - - Inhaled Oxygen Concentration - - Weight 58.7 kg (129 lb 8 oz) 08/25/2011 12:00 AM EST Height 165.1 cm (5' 5 ) 06/14/2010 12:00 AM EST Body Mass Index 21.55 06/14/2010 12:00 AM EST Plan of Treatment Health Maintenance Due Date Last Done Comments Varicella Vaccines (1 of 2 - 13+ 2-dose series) 2004 Consider Men B Vaccine (1 of 2 - Bexsero 2-dose series) 2007 DTaP,Tdap,and Td Vaccines (7 - Td or Tdap) 05/22/2017 05/22/2007, 03/09/2003, 10/29/1996, Additional history exists Influenza Vaccines (#1) 2024 06/14/2010, 08/28 COVID-19 Vaccine ( season) 2024 HIB Vaccines Completed 12/01/1992, 10/1991, 1991, Additional history exists IPV Vaccines Completed 08/13/1996, 03/03, 1991, Additional history exists MMR Vaccines Completed 08/13/1996, 12/01/1992 Hepatitis B Vaccines Completed 10/29/1996, 08/13/1996, 05/30/1995 Meningococcal Vaccine Aged Out 01/24/2006 No stephen juancarlos eligible based on patient's age to complete this topic HPV Vaccines Completed 11/20/2007, 07/03, 05/22/2007 Hepatitis A Vaccines Aged Out No long er eligible based on patient's age to complete this topic Men B Vaccine Aged Out No longer elig ible based on patient's age to complete this topic Pneumococcal Vaccine Aged Out No long er eligible based on patient's age to complete this topic
--- OUTSIDE RECORDS SUMMARY | 2024-09-11 08:10 | XMS_ITS | Encounter Summary ---
Author Organization [facility] Address [address] [place] [phone] Phone Care Team Providers Care Rodeo Rider Name Role Phone Arely Bhardwaj MD Primary Care Provider [phone] Encounter Details Date Type Department Care Team (Late st Contact Info) Description 10/06/[address] [facility] Family Medicine [address] [place] [address] Family Medicine, Physician [address] [place], [place] [id number] Social History Tobacco Use Types Packs/Day Years Used Date Smoking Tobacco: Never Assessed Comments Unknown Sex and Gender Information Value Date Recorded Sex Assigned at Not on file Legal Sex Female 4:39 PM EDT Gender Identity Not on file Sexual Orientation Not on file documented as of this encounter Plan of Treatment Not on file documented as of this encounter Visit Diagnoses Not on filedocumented in this encounter Care Teams Rodeo Rider Relationship Specialty Start Date End Date Arely Bhardwaj MD [address] [place] [address] [place] [id number] PCP - General 02/09/17 08/30/22 documented as of this encounter
--- OUTSIDE RECORDS SUMMARY | 2024-09-11 08:10 | XMS_ITS | Clinical Summary ---
Author Organization [address] Address [address] [place] [id number] Phone Care Team Providers Care Clockmaker Apprentice Name Role Phone Wendie Johnson MD Primary Care Provider [phone] Allergies Active Allergy Reactions Criticality Noted Date Comments Other 03/22/2019 Seasonal Allergies Shellfish Derived Nausea And Vomiting 9 Medications albuterol HFA (PROAIR HFA ; PROVENTIL HFA ; VENTOLIN HFA) 90 mcg/actuation inhaler Inhale 1 Puff into the lungs every 4 hours as needed for Wheezing or Shortness of Breath. 08/13/19 24 Active azelastine (ASTELIN) 137 mcg (0.1 %) nasal spray USE 2 SPRAYS EACH NOSTRIL TWICE DAILY DIRECTED 03/08/20 21 Active baclofen (LIORESAL) 10 mg tablet Take 1 tablet by mouth 3 times daily as needed for Other (muscle spasms). 08/09/19 22 Active buPROPion XL (WELLBUTRIN XL) 300 mg 24 hr tablet Take 1 tablet (300 mg total) by mouth 1 (one) time each day in the morning. 08/02/19 24 Active cetirizine (ZyrTEC) 10 mg capsule Take 1 capsule (10 mg total) by mouth 1 (one) time each day. 08/13/19 24 Active dupilumab (Dupixent Syringe) 300 mg/2 mL syringe 06/06/20 21 Active EPINEPHrine (EpiPen 2-Rafita) 0.3 mg/0.3 mL injection INJECT INTRAMUSCULARLY DIRECTED PRN 05/17/20 20 Active erythromycin 5 mg/gram (0.5 %) ophthalmic ointment 12/20/19 23 Active fluticasone propionate (FLONASE) 50 mcg/actuation nasal spray SPRAY 1 SPRAY INTO EACH NOSTRIL EVERY DAY DIRECTED 10/06/19 23 Active gentamicin (GARAMYCIN) 0.3 % ophthalmic solution 12/19/19 23 Active ipratropium-al buteroL (DUONEB) 0.5-2.5 mg/3 mL nebulizer solution USE 1 VIAL VIA NEBULIZER 4 TIMES DAILY 07/14/19 22 Active levonorgestreL (MIRENA) 21 mcg/24hr (up to 8 yrs) 52 mg IUD 1 Device (1 each total) by intrauterine route 1 (one) time. 11/01/19 17 Active metroNIDAZOLE (METROGEL) 0.75 % (37.5mg/5 gram) vaginal gel APPLY 5 GRAMS AT BEDTIME, VAGINALLY, X 5 DAYS 09/29/19 23 Active omeprazole (PriLOSEC) [address] capsule Take 1 Capsule by mouth daily. 30 min prior to meal 12/21/19 23 Active predniSONE (DELTASONE) 10 mg tablet Take 4 tabs by mouth once daily in AM for 3 days, then 2 tabs by mouth once daily in AM for 3 days, then 1 tab by mouth daily in AM for 3 days. 08/13/19 24 Active triamcinolone (NASACORT) 55 mcg nasal inhaler 55 mcg by Nasal route daily. 08/13/19 24 Active umeclidinium (Incruse Ellipta) 62.5 mcg/actuation inhalation Inhale into the lungs. Active Active Problems Problem Noted Date Diagnosed Date Alcohol abuse 10/10/2022 Current every day smoker 10/10/2022 Moderate persistent asthma without complication 10/10/2022 Non-seasonal allergic rhinitis 10/10/2022 History of PCP abuse 10/10/2022 Snoring 10/31/2021 Overview (06/18/2024): 09/2021 Home Sleep Study did not reveal sleep apnea or nocturnal hypoxia. Anxiety 06/15/2021 Migraine 03/29/2020 Cigarette smoker 01/06/2018 Eczema 11/15/2015 Encounters Date Type Department Care Team Description 07/31/2024 Lab Requisition [facility] - Main Lab [address] [facility] [email or web address] [address] Kimberley Miranda MD Acute vaginitis from Last 3 Months Immunizations Name Administration Dates Next Due Influenza Quadravalent, MDCK , 0.5ml, preservative free (Flucelvax) 6mo and older 06/19/2019 Moderna SARS-CoV-2 COVID-19, mRNA, LNP-S, preservative free 11/16/2020,10/20/2020 Surgical History Surgery Date Site/Laterality Comments TONSILLECTOMY 2009 PROCEDURE: HISTORICAL TONSILLECTOMY OTHER SURGICAL HISTORY 2014 Left PROCEDURE: HISTORICAL ARM SURGERY; COMMENT: left ulnar open reduction OTHER SURGICAL HISTORY PROCEDURE: HISTORICAL ARM SURGERY; COMMENT: date ? / prior surg shortening of ulna Medical History Medical History Date Comments Eczema DX:Eczema Disorder of both eustachian tubes DX:Disorder of both eustachian tubes Steel plate in left arm DX:Steel plate in left arm Family History Medical History Relation Name Comments Other cancer Maternal Grandfather Diabete s Other cancer Paternal Grandfather Skin, H [place] Ovarian cancer Paternal Grandmother Thyroid disease Sister 1 Patient not sure. Relation Name Status Comments Father Alive Maternal Grandfather Maternal Grandmother Mother Alive Paternal Grandfather Alive Paternal Grandmother Sister 1 Sister 2 Alive Social History Tobacco Use Types Packs/Day Years Used Date Smoking Tobacco: Every Day Smokeless Tobacco: Never Alcohol Use Standard Drinks/Week Comments Yes 0 (1 standard drink = 0.6 oz pur e alcohol) Comments Unknown Sex and Gender Information Value Date Recorded Sex Assigned at Not on file Legal Sex Female 12:53 PM EST Gender Identity Not on file Sexual Orientation Not on file Obstetrics History Last Filed Vital Signs Vital Sign Reading Time Taken Comments Blood Pressure 134/89 11/28/2023 3:35 PM EDT Pulse 82 11/28/2023 3:35 PM EDT Temperature - - Respiratory Rate - - Oxygen Saturation - - Inhaled Oxygen Concentration - - Weight 82.5 kg (181 lb 12.8 oz) 11/28/2023 3:35 PM EDT Height 167.6 cm (5' 6 ) 11/28/2023 3:35 PM EDT Body Mass Index 29.34 11/28/2023 3:35 PM EDT Plan of Treatment Health Maintenance Due Date Last Done Comments Hepatitis A Vaccines (1 of 2 - Risk 2-dose series) 2010 Hepatitis B Vaccines (1 of 3 - 19+ 3-dose series) 2010 Pneumococcal Vaccine: Pediatrics (0 to 5 Years) and At-Risk Patients (6 to 64 Years) (1 of 2 - PCV) 2010 Cervical Cancer Screening: P ap Smear 2012 HIV Screening 05/30/2022 Hepatitis C Screening 05/30/2022 Social Influencers of Health Screening 05/30/2022 COVID-19 Vaccine (3 - 2023-2 5 season) 2024 11/16/2020, 10/20/2020 Influenza Vaccine (#1) 2024 06/19/2019 Depression Screening 08/13/2024 08/13/2023 DTaP,Tdap,and Td Vaccines (2 - Td or Tdap) 05/26/2026 05/26/2016 Cholesterol Screening (Lipid Panel) 12/21/2027 12/20/2022 HIB Vaccines Aged Out No longer eligi ble based on patient's age to complete this topic HPV Vaccines Aged Out No longer eligi ble based on patient's age to complete this topic IPV Vaccines Aged Out No longer eligi ble based on patient's age to complete this topic MMR Vaccines Aged Out No longer eligi ble based on patient's age to complete this topic Meningococcal ACWY Vaccine Aged Out N o longer eligible based on patient's age to complete this topic Meningococcal B Vacine Aged Out No lo nger eligible based on patient's age to complete this topic RSV Immunization Patients Under 20 months Aged Out No longer eligible b ased on patient's age to complete this topic Varicella Vaccines Aged Out No longer eligible based on patient's age to complete this topic Procedures Procedure Name Priority Date/Time Associated Diagnosis Comments VAGINITIS PATHOGENS BY PCR Routine 07/31/2024 12:00 AM EST Acute vaginitis HM DEPRESSION SCREENING Routine 08/13/2023 LIPID PANEL Routine 12/20/2022 from Last 3 Months or Most Recently Relevant to Health Maintenance Results * (ABNORMAL) Vaginitis pathogens molecular study (07/31/2024 12:00 AM EST) Trichomonas vaginalis Negative Negative 08/01/2024 12:47 PM EST [facility] Gardnerella vaginalis Positive(A) Negative 08/01/2024 12:47 PM EST [facility] Cara Species Negative Negative 12:47 PM EST [facility] Swab Vaginal structure / Unknown 07/31/2024 07/31/2024 12:43 PM EST Kimberley Miranda MD LAB MICROBIOLOGY - GENER AL ORDERABLES Final Result [facility] [address] [place] [address], * Depression Screening (08/13/2023) Depression Screening abstracted Historical Provider HEALTH MAINTENANCE Final Result * Lipid panel (12/20/2022) LDL/HDL Ratio 3 0 - 4 Triglycerides 95 0 - 150 mg/dL Cholesterol 133 0 - 200 mg/dL HDL 52 >=40 mg/dL LDL Cholesterol 62 0 - 100 mg/dL Blood Venous blood specimen / Unknown Historical Provider LAB BLOOD ORDERABLES Lucy l Result from Last 3 Months or Most Recently Relevant to Health Maintenance Insurance [facility] Care Teams Clockmaker Apprentice Relationship Specialty Start Date End Date Wendie Johnson MD [address] [place] [address] PCP - General Internal Medicine 10/25/15
--- OUTSIDE RECORDS SUMMARY | 2024-09-11 08:10 | XMS_ITS | Encounter Summary ---
Author Organization [facility] Address [address] [place] [id number] Phone Care Team Providers Care Radiotelegraph Operator Servicer Name Role Phone Arely Bhardwaj MD Primary Care Provider Encounter Details Date Type Department Care Team (Late st Contact Info) Description 11/07/2011 Documentation [facility] Family Medicine [address] [place] [address] Family Medicine, Physician [address] [place], [place] [id number] Social History Tobacco Use Types Packs/Day Years [...] on filedocumented in this encounter Care Teams Radiotelegraph Operator Servicer Relationship Specialty Start Date End Date Arely Bhardwaj MD [address] [place] [address] [place] [address] PCP - General 02/09/17 08/30/22 documented as of this encounter
--- OUTSIDE RECORDS SUMMARY | 2024-09-11 08:10 | XMS_ITS | Data Portability ---
Author Organization [facility], [address] Address [address] [place] [address] Care Team Providers Care Instructional Supervisor Name Role Phone ANGELA DAWN Primary Care Provider Assessment No assessment recorded. Plan of Treatment Reminders Order Date Submit Date Provider Last Modified By Organization Details Last Modified Time Details Appointments None recorded. Lab streptococc us group A, culture, throat 2022 023 [place] [facility] ([facility], [address] [place] [address], [place], [address], 3 12:06:05 rapid SARS CoV 2 Ag, QL IA, respiratory specimen 2022 023 fiz3 _[facility], [address] [place] [address], [address], 3 19:47:48 rapid strep group A, throat 2022 023 fiz3 _[facility], [address] [place] [address], [address], 3 19:47:48 Referral emergency medicine referral - EKG seem normal , sharp chest pain started today. no radiation, also have epigastric pain central chest pain more towards the left then right. Need to rule out Acute KS. 2022 023 acardinal 3 [facility], [address] [place], [address], 3 18:09:56 orthopedic surgeon referral - right knee pain x 3 weeks getting worse , X-ray negative for any acute fracture. need further evaluation to rule out meniscus injury. 2022 023 alonso wilburn [facility], [address] [place] [address] [place], [address], 3 14:50:44 Procedures None recorded. Surgeries None recorded. Imaging electrocard iogram 2022 023 acardinal 3 [facility], [address] [facility], [place], [address], 3 18:09:56 XR, knee, 3 view 2022 023 [place] [facility], [address] [place] [address], [address], 3 14:56:59 Medication Orders betamethaso ne dipropionat e 0.05 % topical ointment 2023 024 [facility]2071, [address] [place], [address], 4 10:12:13 clotrimazol e 1 % topical cream [address] [facility] [address] [place], [address], 4 10:12:12 cyclobenzap rine 10 mg tablet 2023 024 [facility] #2071, [address] [place], [address], 4 09:44:57 Medrol (Rafita) 4 mg tablets in a dose pack 2023 024 [facility]acy #2071, [address] [place], [address], 4 17:54:34 naproxen 500 mg tablet 2022 023 formerly [facility], [address] [place], [address], 3 14:46:51 amoxicillin 875 mg tablet [address] [facility] #2071, [address] [place], [address], 3 13:09:00 Allergy Relief (fluticason e) 50 mcg/actuati on nasal spray,suspe nsion [address]/Pharmacy #2071, [address] [place], [address], 3 19:47:48 prednisone 20 mg tablet [address] [facility], [address] [place], [address], 3 13:10:13 fexofenadin e-pseudoeph edrine ER 180 mg-240 mg tablet,ext. release 24 hr 2022 023 [email or web address] 31 [facility], [address] [place], [address], 4 17:50:24 albuterol sulfate HFA 90 mcg/actuati on aerosol inhaler 2022 023 ANTONIO [facility], [address] [place], [address], 3 19:48:27 Patient TargetsNo targets recorded. Patient Instructions Encounter Date Encounter Id Patient Instructions Last Modified By Organization Details Last Modified Time 10/05/2022 [id number] cough: care instructions Not available 10/05/2022 19:47:48 sore throat: car e instructions Not available 10/05/2022 19:47:48 Sinusitis is an infection of the lining of the sinus cavities in your head. Sinusitis often follows a cold. It causes pain and pressure in your head and face. In most cases, sinusitis gets better on its own in 1 to 2 weeks. But some mild symptoms may last for several weeks. Sometimes antibiotics are needed. if you are having problems. It's also a good idea to know your test results and keep a list of the medicines you take. How can you care for yourself at home? Take an rlrj-gat-ukqsfcf pain medicine. Avoid Ibuprofen, Aleve and Aspirin if . If the doctor prescribed antibiotics, take them as directed. Do not stop taking them just because you feel better. You need to take the full course of antibiotics. Be careful when taking pysc-ief-stcdzyu cold or influenza (flu) medicines and Tylenol at the same time. Many of these medicines have acetaminophen, which is Tylenol. Read the labels to make sure that you are not taking more than the recommended dose. Too much acetaminophen (Tylenol) can be harmful. Breathe warm, moist air from a steamy shower, a hot bath, or a sink filled with hot water. Avoid cold, dry air. Using a humidifier in your home may help. Follow the directions for cleaning the machine. Use saline (saltwater) nasal washes. This can help keep your nasal passages open and wash out mucus and bacteria. You can buy saline nose drops at a grocery store or drugstore. Or you can make your own at home by adding 1 teaspoon (5 millilitres) of salt and 1 teaspoon (5 millilitres) of baking soda to 2 cups (500 mL) of distilled water. If you make your own, fill a bulb syringe with the solution, insert the tip into your nostril, and squeeze gently. Blow your nose. Put a hot, wet towel or a warm gel pack on your face 3 or 4 times a day for 5 to 10 minutes each time. Try a decongestant nasal spray like oxymetazoline (Drixoral). Do not use it for more than 3 days in a row. Using it for more than 3 days can make your congestion worse. Not available 10/05/2022 19:46:43 Discussed potential complications and intervention options with the patient during this visit. Patient was instructed to increase room humidity and eat soft bland foods. Raising the head of the bed, lozenges, and saline nasal spray were also recommended. Patient may take ibuprofen or acetaminophen as needed for pain control. If the issue does not improve in 24-48 hours, patient should return to the clinic for follow-up. You have been prescribed an antibiotic for your bacterial illness. While antibiotics are sometimes necessary, they can have a negative impact upon the healthy bacteria within your body. This can result in diarrhea/loose stools and yeast infections. By taking probiotics during the course of your prescription, you can lessen the probability of these undesirable side effects. Probiotics can be purchased jqqh-pup-yfufpdh at your pharmacy in the form of capsules or gummies. They are also found naturally in yogurt with live cultures. Mix salt into a quarter-glass of warm water and stir until no more salt will dissolve. Gargle and spit out the salt water mixture one mouthful at a time until the glass is empty. Repeat 4 times daily. Hand hygiene is a neff measure for preventing spread to others, especially after coughing or sneezing and before preparing foods or eating, and we remind all patients of its importance. Please discard of your current tooth brush and get a new one after being on the antibiotic for 3-4 days to prevent reinfection. You are considered contagious until you have the antibiotic for 24 hours. We have sent out for lab results, typically take 3-5 days to return. echo Not available 10/05/2022 19:45:44 11/30/2022 [id number] knee pain or injury: care instructions formerly [facility] Not available 11/30/2022 14:13:11 MUSCULOSKELETAL- KN EE: Inspection of the knee shows no erythema, ecchymosis, or swelling. FROM was full/limited Palpation of the calf and popliteal fossa showed no mass or tenderness. Palpation of patella was nontender. Palpation of medial and lateral joint lines were nontender. Patella ? g rind-test? with NO crepitus. Valgus and Varus testing of the knee showed definite end points. Lateral collateral ligament was nontendner. Medial collateral ligament was nontender. Anterior Drawer Maneuvers: Normal Posterior Drawer maneuvers: Normal Gary's: Negative Melissa's Negative [facility] Not available 11/30/2022 14:13:19 12/18/2022 [id number] chest pain: care instructions Not available 12/18/2022 18:00:24 If you have any kind of chest discomfort, even if it is difficult to describe (sometimes it can feel like bloating or nausea), and especially if the pain radiates down either arm, to the back, or up your neck or if it is associated with sweating, trouble breathing, dizziness, or nausea/vomiting, please go directly to the Emergency Room (ER) to be checked out. The ER is the only place that can completely rule out a heart attack or blood clot in your lungs. A normal-appearing EKG DOES NOT rule out a heart attack. Not available 12/18/2022 17:48:17 01/01/2024 [id number] sciatica: exercises [email or web address] Not available 01/01/2024 17:54:31 01/11/2024 [id number] athlete's foot: care instructions Not available 01/11/2024 10:12:10 Reason for Referral Orthopedic Surgeon Referral for Pain of right knee joint right knee pain x 3 weeks getting worse , X-ray negative for any acute fracture. need further evalu right knee pain x 3 weeks getting worse , X-ray negative for any acute fracture. need further evaluation to rule out meniscus injury. Referring Physician: Jose Martinez, Urgent Care, Encounter Date: 11/30/2022 Emergency Medicine Referral for Chest pain EKG seem normal , sharp chest pain started today. no radiation, also have epigastric pain central ch EKG seem normal , sharp chest pain started today. no radiation, also have epigastric pain central chest pain more towards the left then right. Need to rule out Acute KS. Referring Physician: [facility], Encounter Date: 12/18/2022 Results Created Date Observation Date Name Description Value Unit Range Abnormal Flag Note LastModifiedBy Organization Detail LastModifiedTime 10/06/1910/09/2022 BETA STREP GP A CULTU RE beta strep gp A culture NEGATI VE Refer ence Range : Negat harjeet Not Available [facility] ([facility]) [address] [facility], [place], [address], 10/09/2022 12:06:05 10/06/19 23 10/05/2022 rapid SARS CoV 2 Ag, QL IA, respi rator y speci men Unknown Analyte negati ve Not Available [address] [place] [address], [place], [address], 10/05/2022 19:06:58 10/06/19 23 10/05/2022 rapid SARS CoV 2 Ag, QL IA, respi rator y speci men Unknown Analyte Normal =Negat harjeet Not Available [address] [place] [address], [place], [address], 10/05/2022 19:06:58 10/06/19 23 10/05/2022 rapid strep group A, throa t Unknown Analyte negati ve Not Available [address] [place] [address], [place], [address], 10/05/2022 19:07:14 10/06/19 23 10/05/2022 rapid strep group A, throa t Unknown Analyte Normal = Negati ve Not Available [address] [place] [address], [place], [address], 10/05/2022 19:07:14 12/01/19 23 11/30/2022 XR, knee, 3 view No observ ation record ed. [facility] [address] [place] [address], [address], 11/30/2022 16:29:48 12/19/19 23 12/18/2022 elect rocar diogr am No observ ation record ed. ANTONIO [address] [place], [address], 12/18/2022 18:00:26 12/19/19 23 elect rocar diogr am No observ ation record ed. ANTONIO [facility] [place], [address], 12/18/2022 19:26:17 Result Notes None recorded. Problems Name Problem SNOMED Code Status Onset Date Resolution Date Notes Provider Name and Address Organization Details Recorded Time Eczema 88036374 Active Chrissyjessica Santosts null, [place] - [facility] 4 09:45:45 Atopic dermatitis of bilateral hands 102208448 Active 024 Jose Martinez NP [address] , [place], [address], [place] - [facility] 4 10:10:02 Tinea pedis 1007114 Active 024 Jose Martinez NP [address] [place], [address], [place] - [facility] 4 10:10:28 Anxiety 68238243 Active 023 RIGOBERTO ANTONIOICA null, [place] - [facility] 3 19:04:12 Depressive disorder 48008844 Active 023 RIGOBERTO LUPICA null, [place] - [facility] 3 19:04:19 Asthma 284258612 Active 023 RIGOBERTO LUPICA null, [place] - [facility] 3 19:04:24 Problem Notes None recorded. Procedures Surgical History Date Name Laterality Status Provider Name and Address Organization Details Recorded Time tonsillectomy and adenoidectomy completed RIGOBERTO LUPICA PA - [facility] 10/05/2022 19:06:00 procedure on upper arm completed RIGOBERTO LUPICA PA - [facility] 10/05/2022 19:06:18 Imaging Results Imaging Date Name Status LastModified by Organization Details LastModified Time 11/30/2022 XR, knee, 3 view completed [facility] [address] [place], [address], 11/30/2022 16:29:48 12/18/2022 electrocardiogram completed ANTONIO [id number] [place], [address], 12/18/2022 18:00:26 12/18/2022 electrocardiogram completed ANTONIO [id number] [place], [address], 12/18/2022 19:26:17 Procedure Notes None recorded. Medical Equipment None Reported. Allergies No known drug allergies Medications Name Sig Start Date Stop Date Status Note LastModified by Organization Details LastModified Time cyclobenzap rine 10 mg tablet Take 1 tablet 3 times a day by oral route as needed for 10 days. 01/10 completed Not Available Not Available Not Available dicloxacill in 500 mg capsule TAKE 1 CAPSULE BY MOUTH EVERY 6 HOURS FOR 10 DAYS 11/30 completed Not Available Not Available Not Available prednisone 10 mg tablet PLEASE SEE ATTACHED FOR DETAILED DIRECTION S active Not Available Not Available No t Available doxycycline hyclate 100 mg capsule TAKE 1 CAPSULE BY MOUTH TWICE A DAY WITH FOOD 01/10 completed Not Available Not Available Not Available ketoconazol e 2 % shampoo APPLY TO SCALP DRY + SIT FOR 10 MIN THEN LATHER + FOLLOW WITH MOISTURIZ ING SHAMPOO 2-3 TIMES WEEKLY 01/10 completed Not Available Not Available Not Available cetirizine 10 mg tablet TAKE 1 TABLET BY MOUTH EVERY DAY active Not Available Not Available No t Available ibuprofen 800 mg tablet TAKE 1 TABLET BY MOUTH EVERY 8 HOURS NEEDED FOR PAIN active Not Available Not Available No t Available tretinoin 0.025 % topical cream APPLY PEA SIZED AMOUNT TO FACE NIGHTLY active Not Available Not Available No t Available metronidazo le 0.75 % (37.5 mg/5 gram) vaginal gel APPLY 5 GRAMS TWICE A DAY, VAGINALLY FOR 7 DAYS active Not Available Not Available No t Available prednisone 20 mg tablet TAKE 2 TABLETS EVERY DAY BY ORAL ROUTE IN THE MORNING FOR 4 DAYS. 11/30 completed Not Available Not Available Not Available metronidazo le 500 mg tablet TAKE 1 TABLET BY MOUTH TWICE A DAY active Not Available Not Available No t Available valacyclovi r 500 mg tablet TAKE 1 TABLET BY MOUTH TWICE A DAY 11/30 completed Not Available Not Available Not Available acetaminoph en 500 mg tablet TAKE 2 TABLETS BY MOUTH EVERY 6 HOURS NEEDED FOR PAIN 12/31 completed Not Available Not Available Not Available amoxicillin 875 mg tablet TAKE 1 TABLET BY MOUTH EVERY 12 HOURS WITH MEALS FOR 10 DAYS 11/30 completed Not Available Not Available Not Available cephalexin 500 mg capsule TAKE 1 CAPSULE BY MOUTH EVERY 6 HOURS active Not Available Not Available No t Available fluoxetine 10 mg capsule TAKE 1 CAPSULE BY MOUTH EVERY DAY IN THE MORNING X7 DAYS, THEN D/C AND BEGIN 20 MG active Not Available Not Available No t Available omeprazole 20 mg capsule,del ayed release TAKE 1 CAPSULE BY MOUTH DAILY. 30 MIN PRIOR TO MEAL active Not Available Not Available No t Available mometasone 0.1 % topical ointment APPLY TO AFFECTED AREAS TWICE DAILY FOR TWO WEEKS BREAK FOR ONE WEEK THEN REPEAT NEEDED. 01/10 completed Not Available Not Available Not Available mupirocin 2 % topical ointment APPLY TO AFFECTED AREA ON RIGHT FOOT TWICE DAILY FOR 1 WEEK. active Not Available Not Available No t Available ibuprofen 600 mg tablet TAKE 1 TABLET ORALLY EVERY 6 HOURS NEEDED FOR PAIN active Not Available Not Available No t Available fluocinonid e 0.05 % topical solution PLEASE SEE ATTACHED FOR DETAILED DIRECTION S active Not Available Not Available No t Available methylpredn isolone 4 mg tablets in a dose pack TAKE 6 TABLETS ON DAY 1 DIRECTED ON PACKAGE AND DECREASE BY 1 TAB EACH DAY FOR A TOTAL OF 6 DAYS active Not Available Not Available No t Available hydrocortis one 2.5 % topical ointment PLEASE SEE ATTACHED FOR DETAILED DIRECTION S 01/10 completed Not Available Not Available Not Available betamethaso ne dipropionat e 0.05 % topical ointment Apply by topical route for 30 days. active Not Available Not Available No t Available fluoxetine 20 mg capsule TAKE 1 CAPSULE BY MOUTH EVERY DAY IN THE MORNING active Not Available Not Available No t Available fluticasone propionate 50 mcg/actuati on nasal spray,suspe nsion SPRAY 1 SPRAY INTO EACH NOSTRIL EVERY DAY DIRECTED active Not Available Not Available No t Available clotrimazol e 1 % topical cream APPLY TO THE AFFECTED AND SURROUNDI NG AREAS OF SKIN BY TOPICAL ROUTE 2 TIMES PER DAY IN THE MORNING AND EVENING x 14 days. active Not Available Not Available No t Available sertraline 50 mg tablet TAKE 1 TABLET BY MOUTH EVERY DAY IN THE MORNING active Not Available Not Available No t Available doxycycline hyclate 100 mg tablet TAKE 1 TABLET BY MOUTH TWICE A DAY WITH FOOD active Not Available Not Available No t Available naproxen 500 mg tablet Take 1 tablet twice a day by oral route with meals for 10 days. 2022 active Not Available Not Available Not Avai lable spironolact one 50 mg tablet TAKE 2 TABLETS BY MOUTH EVERY DAY IN THE MORNING AND TAKE 1 TABLET AT NIGHT active Not Available Not Available No t Available amoxicillin 875 mg-potassiu m clavulanate 125 mg tablet TAKE 1 TABLET BY MOUTH TWICE A DAY FOR 10 DAYS active Not Available Not Available No t Available Ventolin HFA 90 mcg/actuati on aerosol inhaler INHALE 1 PUFF INTO THE LUNGS EVERY 4 HOURS NEEDED FOR WHEEZING OR SHORTNESS OF BREATH active Not Available Not Available No t Available oxycodone 5 mg tablet TAKE 1 TABLET BY MOUTH EVERY 4 HOURS NEEDED FOR PAIN 01/10 completed Not Available Not Available Not Available clindamycin 1 % lotion APPLY TO THE INFLAMED LESIONS ON THE BACK IN THE MORNING SPOT TREATMENT . active Not Available Not Available No t Available bupropion HCl XL 300 mg 24 hr tablet, extended release TAKE 1 TABLET BY MOUTH EVERY DAY IN THE MORNING active Not Available Not Available No t Available bupropion HCl XL 150 mg 24 hr tablet, extended release TAKE 1 TABLET BY MOUTH DAILY IN THE MORNING FOR 1 WEEK, THEN D/C AND BEGIN THE 300 MG active Not Available Not Available No t Available fexofenadin e-pseudoeph edrine ER 180 mg-240 mg tablet,ext. release 24 hr Take 1 tablet every day by oral route in the evening for 10 days. 12/31 completed Not Available Not Available Not Available chlorhexidi ne gluconate 0.12 % mouthwash TAKE 1 CAPFUL SWISH AND HOLD IN THE MOUTH FOR 2 MINS THEN SPIT 3 TIMES A DAY AFTER MEALS 12/31 completed Not Available Not Available Not Available Zoloft active Not Available Not Availa ble Not Available Ascensia BRIO 10/05 completed Not Available Not Available Not Available Gavilax 17 gram/dose oral powder MIX 17 GRAMS INTO LIQUID AND DRINK BY MOUTH EVERY 12 HOURS, NEEDED FOR CONSTIPAT ION active Not Available Not Available No t Available Senexon-S 8.6 mg-50 mg tablet TAKE 1 TABLET BY MOUTH EVERY 12 HOURS NEEDED FOR CONSTIPAT ION active Not Available Not Available No t Available lidocaine 5 % topical ointment APPLY 1 GRAM THREE TIMES A DAY NEEDED FOR ITCHING AND DISCOMFOR T active Not Available Not Available No t Available Brebriana Ellipta 01/10 completed Not Available Not Available Not Available Dupixent 300 mg/2 mL subcutaneou s syringe active Not Available Not Available No t Available Proair Digihaler 90 mcg/actuati on aerosol powder breath act, sensor Inhale 2 puffs every 4 hours by inhalatio n route. active Not Available Not Available No t Available Vitals Date Recorded Body height Body mass index (BMI) Body weight Body temperature Oxygen saturation Oxygen saturation in Arterial blood by Pulse oximetry Heart rate Respiratory rate Systolic blood pressure Diastolic blood pressure Provider Name and Address Organization Details Last Updated DateTime 3 167.64 cm 28.7 kg/m2 12444.4 4 g 97 [degF] 97 % 97 % 93 /min 18 /min 109 mm[Hg] 79 mm[Hg] RIGOBERTO TELLEZ [place] - [facility] 3 19:09:30 Date Recorded Body height Body mass index (BMI) Body weight Pain severity - 0-10 verbal numeric rating [Score] - Reported Respiratory rate Oxygen saturation Oxygen saturation in Arterial blood by Pulse oximetry Heart rate Body temperature Systolic blood pressure Diastolic blood pressure Provider Name and Address Organization Details Last Updated DateTime 3 167.64 cm 28.7 kg/m2 66284.4 4 g 7 18 /min 100 % 100 % 88 /min 97.8 [degF] 117 mm[Hg] 78 mm[Hg] CARO LLANOS RA DidLog - [facility] 3 14:05:37 Date Recorded Body height Body mass index (BMI) Body weight Pain severity - 0-10 verbal numeric rating [Score] - Reported Respiratory rate Oxygen saturation Oxygen saturation in Arterial blood by Pulse oximetry Heart rate Body temperature Systolic blood pressure Diastolic blood pressure Provider Name and Address Organization Details Last Updated DateTime 3 167.64 cm 28.7 kg/m2 82766.4 4 g 10 18 /min 98 % 98 % 92 /min 98.6 [degF] 121 mm[Hg] 84 mm[Hg] CARO LLANOS RA PA - [facility] 3 17:32:51 Date Recorded Body height Body weight Oxygen saturation Oxygen saturation in Arterial blood by Pulse oximetry Pain severity - 0-10 verbal numeric rating [Score] - Reported Heart rate Respiratory rate Body temperature Systolic blood pressure Diastolic blood pressure Provider Name and Address Organization Details Last Updated DateTime 4 167.64 cm 15059.5 9 g 99 % 99 % 9 71 /min 18 /min 97.4 [degF] 136 mm[Hg] 97 mm[Hg] Cammy Sutton [place] - [facility] 4 17:49:34 Date Recorded Body height Body mass index (BMI) Body weight Body temperature Respiratory rate Oxygen saturation Oxygen saturation in Arterial blood by Pulse oximetry Heart rate Systolic blood pressure Diastolic blood pressure Provider Name and Address Organization Details Last Updated DateTime 4 167.64 cm 29.9 kg/m2 37007.5 9 g 98 [degF] 18 /min 97 % 97 % 61 /min 126 mm[Hg] 85 mm[Hg] Chrissy Silveira [facility] 4 09:47:11 Social History Question Answer Notes LastModified by [employer] ion Details LastModified Time Tobacco Smoking Status Current Every Day Smoker RIGOBERTO amzequita [place] - [facility] 10/05/2022 19:05:43 What Is Your Level Of Alcohol Consumption? Heavy [email or web address] Information not available 10/05/2022 Have You Had A Flu Shot This Season? Yes [email or web address] Information not available 01/01/2024 Have You Had Direct Contact, Or Contact During Intimacy, With Monkeypox Rash, Scabs, Or Body Fluids From A Person With Monkeypox? No [email or web address] Information not available 01/01/2024 What Was The Date Of Your Most Recent Tobacco Screening? 01/11/2024 [email or web address] Information not available 01/11/2024 How Much Tobacco Do You Smoke? 0.25 PPD 3 [email or web address] Information not available 10/05/2022 Do You Use Any Illicit Or Recreational Drugs? No [email or web address] Information not available 10/05/2022 Have You Recently Traveled Abroad? No [email or web address] Information not available 10/05/2022 Do You Or Have You Ever Used Any Other Forms Of Tobacco Or Nicotine? No [email or web address] Information not available 10/05/2022 Sex: Unknown Functional Status None recorded. Mental Status None recorded. Family History Relationship Description Onset Age of this Age Resolved Age Notes LastModified by Organization Details LastModified Time Unspecified Relation Asthma [email or web address] Not available 023 19:04:39 Father No current problems or disability [email or web address] Not available 08/2023 17:50:47 Mother No current problems or disability [email or web address] Not available 08/2023 17:50:47 Medical History No medical history recorded. Gynecological History Statement/Question Response Date of LMP Is there any chance of ? No Obstetrics History GPAL:G 0 P 0 0 0 0 Immunizations Vaccine Type Date Status Note Provider Nam e and Address Organization Details Recorded Time Influenza, MDCK, quadrivalent, PF 9 completed CARO MUELLER-JALLOH null, [place] - [facility] 11/30/2022 13:08:41 COVID-19, mRNA, LNP-S, PF, 100 mcg/0.5mL dose or 50 mcg/0.25mL dose 1 completed CARO MUELLER-JALLOH null, PA - [facility] 11/30/2022 13:08:42 COVID-19, mRNA, LNP-S, PF, 100 mcg/0.5mL dose or 50 mcg/0.25mL dose 1 completed CARO MUELLER-JALLOH null, PA - [facility] 11/30/2022 13:08:42 Td (adult), 5 Lf tetanus toxoid, preservative free, adsorbed 6 completed CARO MUELLER-JALLOH null, PA - [facility] 11/30/2022 13:08:42 Past Encounters Encounter ID Performer Location Encounter Start Date Encounter Closed Date Diagnosis/Indication Diagnosis SNOMED-CT Code Diagnosis ICD10 Code Diagnosis Note [id number] [address] [place] [address] 08/23/2021 09:58:18 08/23/2021 12:41:47 [id number] 21005_Chi [facility] [address] [place] [address] 07/20/2021 08:19:50 07/20/2021 12:40:08 [id number] [address] [place] [address] 10/16/2021 13:35:49 10/16/2021 14:40:45 [id number] 20995[address] davideMema riar [address] [place] [address] 01/06/2020 10:40:19 01/06/2020 11:04:53 [id number] [address] [place] [address] 03/03/2022 17:51:02 03/03/2022 20:07:01 [id number] [address] [place] [address] 11/04/2021 13:51:11 11/04/2021 14:50:15 [id number] [address] [address] 09/29/2021 16:12:31 09/29/2021 17:30:47 [id number] Jose [facility] [address] [place] [address] 10/05/2022 18:58:02 10/06/2022 07:44:48 Cough 77316590 R05.9 Exposure t o SARS-CoV-2 020966814 Z20.822 Streptococ silviano sore throat [id number] J02.0 Asthma [id number] J45.90 9 [id number] Jose Martinez NP [address] [place] [address] 11/30/2022 12:09:13 11/30/2022 14:50:44 Pain of right knee joint [id number] 07497 M25.561 [id number] Jose Martinez NP [address] [place] [address] 12/18/2022 17:21:35 12/18/2022 18:09:56 Chest pain 40416082 R07.9 911 was called and patient was transferre d to [facility] ED via ambulance and 2 EMT's. [id number] MATTHEW Mccarthy [address] [facility] [address] [facility] [place] [address] 01/01/2024 17:39:29 01/01/2024 17:55:36 Right side sciatica [id number] 37616 M54.31 Sciatica-- is an irritation of one of the sciatic nerves, which come from the spinal cord in the lower back. The sciatic nerves and their branches extend down through the buttock to the foot. Sciatica can develop when an injured disc or arthritis in the back irritates or presses against a spinal nerve root. Its main symptom is pain, numbness, or weakness that is often worse in the leg or foot than in the back. Sciatica often will improve and go away with time.Early treatment usually includes medicines and exercises to relieve pain. -Use heat or ice to relieve pain. -To apply heat, put a warm water bottle, heating pad set on low, or warm cloth on your back. Do not go to sleep with a heating pad on your skin. -To use ice, put ice or a cold pack on the area for 10 to 20 minutes at a time. Put a thin cloth between the ice and your skin. -Avoid sitting if possible, unless it feels better than standing. -Alternate lying down with short walks. Increase your walking distance as you are able to without making your symptoms worse. -Do not do anything that makes your symptoms worse. Go to the Emergency Room if--You are unable to move a leg at all.--You have new or worse symptoms in your legs or buttocks of Numbness or tingling ,Weakness, severe Pain. --You lose bladder or bowel control. [id number] Jose Martinez NP [address] [facility] [address] [place] [address] 01/11/2024 09:15:58 01/11/2024 10:17:10 Atopic dermatitis of bilateral hands [id number] L20.9 Based on your presentati on and exam - I am diagnosis you with Dishidroti c Eczema/Con tact Dermatits This most likely can be related to dyes, environmen jose antonio exposures, or autoimmune issue. The following recommenda tions will help you with your symptoms.: 1. Cool Compresses to the itchy areas. Heat will only make the rash.2. Do not scratch or itch - this can lead to infection. 3. Take Antihistam luisa - like benadryl - this will help - but when the medication s wear off the redness might return.4. Use the cream sparingly - a little goes a long way5. You should start the cream as soon as you see the rash coming on.6. Do not pop any of the liquid filled areas - this can cause the rash to spread The following are warning signs to look out for that would suggest the infection is worsening. This would mean you should be seen again:1. Fever > 100.52. Redness is spreading to double the size in 24 hours3. Increased swelling and pain.4. Inability to move a joint5. Swollen lymph nodes that are tender Thank you for using [employer] today, please don't hesitate to call or reach out to us if you have any questions or concerns. Tinea pedis [id number] B35. 3 What are ringworm, athlete's foot, and jock itch?These are all skin infections caused by a fungus. These types of fungal infections are also called tinea. Some people call these fungal infections ringworm. This is because they often cause a ring-shape d, red, itchy rash on the skin. But a ring-shape d rash is not always there. Depending on where the infection is, it can look different: ? People with athlete's foot might instead have moist, raw skin between their toes, or flaking skin on the bottoms of their feet.? People with jock itch often just have a rash on their groin. It usually starts in the fold where the thigh meets the groin area.? Sometimes , especially in children, the fungus can infect the scalp. On the scalp, the infection can look like a bald spot or a round flaky patch of skin. How did I get a fungal infection? You can catch fungal infections through skin-to-sk in contact with a person who is infected. You can also catch them from an infected dog or cat. You can also get the infections from places where the fungus might be, such as:? A shower stall? A locker room floor? The area near a pool If you have a fungal infection on 1 part of your body, you can also spread it to other parts. For instance, a fungal infection on your feet could spread to your groin. How are fungal infections treated?Th e treatment for a fungal infection depends on which body part is affected:? If you have a fungal infection on your scalp, you must take pills to kill the fungus. Treatment for scalp infections usually lasts 1 to 3 months.? If you have a fungal infection on your feet, groin, or another body part, most of the time, you will not need pills. Instead, you can use a special gel, cream, lotion, or powder to kill the fungus. Treatment with these products lasts 2 to 4 weeks.? If you have a fungal infection on your groin and on your feet, you must treat both infections at the same time. If you don't, the infection on your feet can spread to your groin again. Health Concerns Section Related Observation LastModified by Organization Detai ls LastModified Time None Recorded Concern Status LastModified by Organization Details LastModified Time None Recorded Advance Directives Directive None Recorded Payers Encounter Date Sequence Insurance Name Policy Number Policy Schmidt Covered Member ID Schmidt Member ID Guarantor Name 10/05/2022 1 [facility] (MEDICAID REPLACEMENT - HMO) CHRISTINE Delgado Cardinal [id number] Gretchen Tineo 11/30/2022 1 [facility] (MEDICAID REPLACEMENT - HMO) CHRISTINE Delgado Cardinal [id number] Gretchen Tineo 12/18/2022 1 [facility] (MEDICAID REPLACEMENT - HMO) CHRISTINE Delgado Cardinal [id number] Gretchen Tineo 01/01/2024 1 [facility] (O) Gretchen Tineo [id number] Gretchen Tineo 01/11/2024 1 [facility] (O) Gretchen Tineo [id number] Gretchen Tineo Notes Date Note Type Note Provider Name and Address Organization Details Recorded Time 3 text/html Sore throatReported bypatient.Source of patient informationInformation obtained from patient; Patient arrived at Urgent Care ambulatory; learning styles: auditory Location:throat Severity:mild Quality:sharp; burning Onset/Timin days Associated Symptoms:no sputum production; no shortness of breath; no wheezing; no vomiting; no nausea;sore throat;hoarseness;coughing; sinus pain/ congestion Context:no foreign travel; non-smoker;sick contact Modifying Factors:exposed to Strep non household JOSE [place], [address], [facility] 10/05/2022 19:48:56 3 text/html KneeReported bypatient.Location:right; anterior; lateral Quality:aching; sharp; constant; worsening Severity:moderate Duration:3 weeks Timing:acute Context:sports injury Alleviating Factors:limited weight bearing Aggravating Factors:walking; lifting; twisting; weight bearing Associated Symptoms:no weakness; no numbness; no tingling; no swelling; no redness; no warmth; no ecchymosis; no catching/locking; no buckling; no grinding; no instability; no radiation down leg; no drainage; no fever; no chills; no weight loss; no change in bowel/bladder habits;popping/clicking Previous Surgery:none Prior Imaging:none Previous Injections:none Previous PT:none Work Related:no Working:no JOSE RAUL Quinonez, [place], [address], [facility] 11/30/2022 19:50:48 3 text/html Chest PainReported bypatient.source of patient informationInformation obtained from patient; Patient arrived at Urgent Care ambulatory; learning styles: auditory Location:chest; epigastrium; left substernal; does not radiate Quality:aching;sharp Severity:moderate Duration:lasts hours; started 1 days ago Onset/Timing:abrupt onset without warning Context:at rest Aggravating Factors:worse with stress/emotional upset Associated Symptoms:no dyspnea; no decrease in exercise capacity; no fatigue; no nocturnal episodes; no resting episodes; no associated palpitations; no associated dizziness;chest discomfort JOSE RAUL QuinonezHarish[place]yman[place]ya[place], [address], [place] - [facility] 12/18/2022 18:09:50 4 text/html 33 y/o female here with R sided lower back pain radiating to her buttocks for 3 days. Was playing softball and slid to catch the ball right before it started MATTHEW Mccarthy [address] [place], [address], [place] - [facility] 01/01/2024 17:56:03 4 text/html UC Rash/Skin LesionReported bypatient.source of patient informationInformation obtained from patient; Patient arrived at Urgent Care ambulatory; 33 year old female presented with eczema on her armpits and hands also present on her flexor surface on/off since childhood. flare up. Also complaint of athletes foot rash on her bilateral feet. Location:neck; arms; hands; legs; feet Quality:itchy;red;spreading Severity:moderate Duration:2 days Context:other exposure; no new detergent or skin product; no recent change in medication; no exposure to hair dye; no expsoure to new clothes/jewelry; no recent travel; no recent illness; no pets/animals in home; not affiliated with chemicals/pesticides Alleviating Factors:nothing gives relief Associated Symptoms:no fever; no fatigue Treatment History:OTC treatment with no improvement; prescription topical treatment with improvement Jose Martinez NP [address] [place], [address], [place] - [facility] 01/11/2024 10:12:33 OBGyn Episode No OBEpisode recorded.
--- OUTSIDE RECORDS SUMMARY | 2024-09-11 08:10 | XMS_ITS | Clinical Summary ---
Author Organization [facility] Address [address] [place] [address] Care Team Providers Care Receiving Clerk Name Role Phone Unavailable Primary Care Provider Unavailabl e Source Comments PLEASE NOTE, if this patient is a minor, it may be UNLAWFUL to discuss sensitive information that is contained in these records (such as FAMILY PLANNING, MENTAL HEALTH or SUBSTANCE ABUSE) with the minor patient's parent or other person without the patient's specific authorization.[facility] Medications buPROPion HCL (WELLBUTRIN XL) 300 mg 24 hr tablet Take 300 mg by mouth every morning 07/11/2023 Active chlorhexidine (PERIDEX) 0.12 % solutionIndicat ions:Gingivitis Swish and spit 15 mL 2 (two) times daily 118 mL 09/01/2023 Active Active Problems No known active problems Encounters Date Type Department Care Team Description 06/18/2024 Travel from Last 3 Months Social History Tobacco Use Types Packs/Day Years Used Date Smoking Tobacco: Every Day Cigarettes 0.3 10 Passive Smoke Exposure: Never Smokeless Tobacco: Never Tobacco Cessation:Ready to Q uit: Not Asked; Counseling Given: Not Answered Social Connections Answer Date Recorded Connectedness 0 03/16/2024 Financial Resource Strain Answer Date R ecorded Financial Resource Strain 0 2023 Stress Answer Date Recorded Stress 0 07/25/2023 Physical Activity Answer Date Recorded Physical Activity 0 07/25/2023 Food Insecurity Answer Date Recorded Food 0 03/27/2024 Transportation Needs Answer Date Record ed Transportation 0 07/25/2023 Housing Stability Answer Date Recorded Housing 0 07/25/2023 Safety and Environment Answer Date Darian rded Safety 0 07/25/2023 Utilities Answer Date Recorded Utilities 0 07/25/2023 Employment Answer Date Recorded Stress 0 03/16/2024 Comments Unknown Sex and Gender Information Value Date Recorded Sex Assigned at Not on file Legal Sex Female 1:43 PM PST Gender Identity Not on file Sexual Orientation Not on file Last Filed Vital Signs Vital Sign Reading Time Taken Comments Blood Pressure 118/88 01/14/2024 4:00 PM EDT Pulse 80 01/14/2024 3:58 PM EDT Temperature - - Respiratory Rate - - Oxygen Saturation - - Inhaled Oxygen Concentration - - Weight - - Height - - Body Mass Index - - Plan of Treatment Health Maintenance Due Date Last Done Comments HPV Screening 1991 Hepatitis C Screening 1991 Pap + HPV 1991 HIV Screening 2006 Relationship Safety Screening/Counseling 2006 Imm-Pneumococcal (1 of 2 - PCV) 2010 Cervical Cancer Screening 2012 Pap Smear 2012 [id number]-[id number]-40 ( season) 2024 021, 10/20/2020 Imm-Influenza (#1) 2024 06/19/2019, 1 08/15/2009, 08/28/2008 Alcohol and Drug Screen 07/02/2024 Depression Annual Screen 07/02/2024 Tobacco Cessation Counseling (#1) 08/01/2024 Dental BW 08/30/2024 08/28/2023 Dental Prophy 08/30/2024 08/28/2023 Dental Examination 09/02/2024 09/01/2023 Dental Perio Charting 01/02/2025 01/01/2024 Hypertension Screening (#1) 01/13/2025 Imm-DTaP/Tdap/Td (8 - Td or Tdap) 08/13/2025 08/13/2015, 05/22/2007, 03/09/2003, Additional history exists Dental FMX/Pano 08/30/2028 08/28/2023 Imm-Hepatitis B Completed 10/29/1996, 08/02, 05/30/1995 Cervical Ablation/Cold-Knife Conization Discontinued Cervical Cryotherapy Discontinued Colposcopy Discontinued Endometrial Biopsy Discontinued Excision/Leep Discontinued HPV Genotyping Discontinued Vaginal Pap Discontinued Vulvoscopy Discontinued Procedures Procedure Name Priority Date/Time Associated Diagnosis Comments Full COMP ORAL EVALUATION - NEW/ESTABLISHED PATIENT Routine 09/01/2023 12:20 PM EST Gingivitis Caries of dentin Full INTRAORAL - COMP SERIES OF RADIOGRAPHIC IMAGES Routine 08/28/2023 4:20 PM EST Chronic gingivitis, plaque induced Full PROPHYLAXIS - ADULT Routine 024 4:20 PM EST Chronic gingivitis, plaque induced from Last 3 Months or Most Recently Relevant to Health Maintenance Insurance [place]
--- OUTSIDE RECORDS SUMMARY | 2024-09-11 08:10 | XMS_ITS | Encounter Summary ---
Author Organization [facility] Address [address] [place] [id number] Phone Care Team Providers Care Injection Molder Name Role Phone Arely Bhardwaj MD Primary Care Provider Encounter Details Date Type Department Care Team (Late st Contact Info) Description 02/15/2017 Conversion Encounter [facility] [address] [place] [address] Social History Tobacco Use Types Packs/Day Years [...] on filedocumented in this encounter Care Teams Injection Molder Relationship Specialty Start Date End Date Arely Bhardwaj MD [address] [place] [address] PCP - General 02/09/17 08/30/22 documented as of this encounter
[2024-09-11 08:12] LABS: Alanine Aminotransferase 25 U/L (0-31); Albumin Level 4.1 g/dL (3.5-5.0); Alkaline Phosphatase 114 U/L (39-117); Anion Gap 12 (12-20); Aspartate Amino Transferase 25 U/L (5-31); Bilirubin Total 0.7 mg/dL (0.0-1.0); Blood Urea Nitrogen 12 mg/dL (9-16); Calcium 8.7 mg/dL (8.4-10.2); Carbon Dioxide 22 mmol/L (22-29); Chloride 110 mmol/L (96-108); Creatinine Clr Calc Pharmacy 123.4; Estimated Glomerular Filt Rate > 60; Glucose Random 106 mg/dL (60-115); Magnesium 2.1 mg/dL (1.6-2.6); Potassium 3.8 mmol/L (3.3-5.1); Sodium 140 mmol/L (135-145); Total Protein 7.5 g/dL (6.5-8.0)
[2024-09-11] MEDS: Benzonatate 100 MG CAPSULE PO (08:19)
[2024-09-11] MEDS: methylPREDNISolone Sod Succ 125 MG/2 ML VIAL 60 MG IVPUSH (08:20)
[2024-09-11] MEDS: HYDROcodone/Homat 5/1.5/5 ML 5 ML SYRUP PO (08:21)
[2024-09-11 08:23] VITALS: PULSE 87; RESP 18; O2SAT 96
[2024-09-11 08:34] LABS: Influenza A PCR NEGATIVE (Negative); Influenza B PCR NEGATIVE (Negative); Resp Syncy Virus RNA Qual PCR NEGATIVE (Negative); SARS COV2 PCR INHOUSE NEGATIVE (Negative)
[2024-09-11 09:45] VITALS: O2SAT 98
[2024-09-11 10:17] VITALS: BP 127/95; PULSE 87; RESP 18; TEMP 36.7; O2SAT 98
== END 2024-09-11 10:20 | disposition home or self-care (01) ==
PROVIDERS: Emergency Provider Emergency Medicine; PCP Internal Medicine
DX: H66.93 Otitis media, unspecified, bilateral (principal); J45.909 Unspecified asthma, uncomplicated; R07.89 Other chest pain; R06.02 Shortness of breath; H92.03 Otalgia, bilateral; Z03.818 Encounter for observation for suspected exposure to other biological agents ruled out; Z79.899 Other long term (current) drug therapy
CPT/HCPCS: 0241U; 71046; 80053; 83735; 85025; 93005; 94640; 96374; 99284; 99285; J2919

== ENCOUNTER → 2024-09-11 07:28 | Outpatient (BNV) | payer OTHER, SELFPAY | PROVIDERS: Emergency Provider Emergency Medicine; PCP Internal Medicine; Visit Provider Internal Medicine | DX: R07.9 Chest pain, unspecified (principal); R06.02 Shortness of breath; R94.31 Abnormal electrocardiogram [ECG] [EKG] | CPT/HCPCS: 93010 ==

== ENCOUNTER → 2024-09-11 08:30 | Outpatient (BNV) | payer OTHER, SELFPAY | PROVIDERS: Emergency Provider Emergency Medicine; PCP Internal Medicine; Visit Provider Radiology Diagnostic Radiology | DX: J45.909 Unspecified asthma, uncomplicated (principal) | CPT/HCPCS: 71046 ==

== ENCOUNTER → 2025-03-31 13:14 | Outpatient (BNVA) | payer OTHER, SELFPAY | PROVIDERS: PCP Internal Medicine; Visit Provider Registered Nurse | DX: S70.372A Other superficial bite of left thigh, initial encounter (principal); W50.3XXA Accidental bite by another person, initial encounter; Z02.79 Encounter for issue of other medical certificate | CPT/HCPCS: 99202 ==

== ENCOUNTER → 2025-04-07 08:06 | Outpatient (BNVA) | payer OTHER, SELFPAY | PROVIDERS: PCP Internal Medicine; Visit Provider Registered Nurse | DX: S70.12XD Contusion of left thigh, subsequent encounter (principal); W50.3XXD Accidental bite by another person, subsequent encounter; Z02.79 Encounter for issue of other medical certificate | CPT/HCPCS: 99213 ==

== ENCOUNTER 2025-04-30 08:51 | Outpatient (REF) | payer OTHER, SELFPAY ==
--- OUTSIDE RECORDS SUMMARY | 2025-05-01 09:19 | XMS_ITS | Clinical Summary ---
Author Organization [address] Address [address] [place] [phone] Phone Care Team Providers Care Clinique Counter Manager Name Role Phone Wendie Johnson MD Primary Care Provider [phone] Allergies Active Allergy Reactions Criticality Noted Date Comments Other 03/22/2019 Seasonal Allergies Shellfish Derived Nausea And Vomiting 9 Medications buPROPion XL (WELLBUTRIN XL) 300 mg 24 hr tablet Take 1 tablet (300 mg total) by mouth 1 (one) time each day in the morning. 4 Active cetirizine (ZyrTEC) 10 mg capsule Take 1 capsule (10 mg total) by mouth 1 (one) time each day. 4 Active dupilumab (Dupixent Syringe) 300 mg/2 mL syringe 1 Active levonorgestreL (MIRENA) 21 mcg/24hr (up to 8 yrs) 52 mg IUD 1 Device (1 each total) by intrauterine route 1 (one) time. 7 Active metroNIDAZOLE (METROGEL) 0.75 % (37.5mg/5 gram) vaginal gel APPLY 5 GRAMS AT BEDTIME, VAGINALLY, X 5 DAYS 3 Active triamcinolone (NASACORT) 55 mcg nasal inhaler 55 mcg by Nasal route daily. 4 Active Breo Ellipta 200-25 mcg/dose inhalerIndicatio ns:Moderate persistent asthma without complication Inhale 1 puff by mouth 1 (one) time each day. 1 each 3 5 026 Active Incruse Ellipta 62.5 mcg/actuation inhalationIndica tions:Moderate persistent asthma without complication Inhale 1 puff by mouth 1 (one) time each day. 30 each 3 5 Active ipratropium-albu teroL (DUONEB) 0.5-2.5 mg/3 mL nebulizer solutionIndicati ons:Moderate persistent asthma without complication Take 3 mL by nebulization 4 (four) times a day if needed for wheezing or shortness of breath (cough and chest tightness). 360 mL 3 5 Active albuterol HFA (PROAIR HFA ; PROVENTIL HFA ; VENTOLIN HFA) 90 mcg/actuation inhalerIndicatio ns:Moderate persistent asthma without complication Inhale 2 puffs by mouth every 4 (four) hours if needed for wheezing or shortness of breath (cough and chest tightness). 18 g 3 5 Active FLUoxetine (PROzac) 20 mg capsule Take 1 capsule (20 mg total) by mouth 1 (one) time each day. Active EPINEPHrine (EpiPen 2-Rafita) 0.3 mg/0.3 mL injection Inject 0.3 mL (0.3 mg total) into the thigh if needed for anaphylaxis. 1 each 1 5 Active Active Problems Problem Noted Date Diagnosed Date Obesity (BMI 30-39.9) 12/21/2024 Alcohol abuse 10/10/2022 Moderate persistent asthma without complication 10/10/2022 Non-seasonal allergic rhinitis 10/10/2022 History of PCP abuse ([facility] V24, [facility] V28) 10/10/2022 Snoring 10/31/2021 Overview (06/18/2024): 09/2021 Home Sleep Study did not reveal sleep apnea or nocturnal hypoxia. Anxiety 06/15/2021 Migraine 03/29/2020 Eczema 11/15/2015 Resolved Problems Problem Noted Date Diagnosed Date Resolved Date Current every day smoker 10/10/2022 Cigarette smoker 01/06/2018 02/27/2025 Encounters Date Type Department Care Team Description 04/08/2025 Results Follow-Up Adult Medicine [address] [phone] Rosalee Martinez PA 03/31/2025 3:30 PM EDT Office Visit Adult [address] [phone] Rosalee Martinez PA Adult general medical examination (Primary Dx); Alcohol abuse; Moderate persistent asthma, unspecified whether complicated; Chronic shortness of breath; Obesity (BMI 30-39.9); Non-seasonal allergic rhinitis, unspecified trigger; Epigastric pain 03/03/2025 9:45 AM EDT - 03/03/2025 11:59 PM EDT Hospital Encounter [address] [phone] Chronic pain of right ankle Discharge Disposition: Home or Self Care 03/03/2025 9:30 AM EDT Office Visit [address] [phone] Wendie Johnson MD Chronic pain of right ankle (Primary Dx); Moderate persistent asthma without complication 02/25/2025 Nurse Triage Adult [address] [phone] Wendie Johnson MD from Last 3 Months Immunizations Immunization Administration Dates Next Due DTP 03/28/1993, 2,1991,09/28 DTaP 5 pertussis antigens, D iptheria Tetanus acellular pertussis (Daptacel) 6wks to less than 7yo 10/29/1996 HPV, Quadrivalent 11/20/2007,07/24/2007,05/22/20 07 Hepatitis B Pediatric (Enger ix B; Recombivax HB) to less than 20 yo 10/29/1996,08/13/1996,05/30/1995 HiB PRP-T conjugate (Acthib, Hiberix) 6wks and older 12/01/1992,05/05/1992,1991,09/28 Influenza Quadravalent, MDCK , 0.5ml, preservative free (Flucelvax) 6mo and older 06/19/2019 Influenza Split 06/14/2010 Influenza trivalent, with pr eservative (Fluzone; Afluria) 6mo and older 08/28/2008 MMR, measles mumps and rubel la Live (Priorix; M-M-R II) 12mo and older 08/13/1996,12/01/1992 Meningococcal MCV4P 01/24/2006 Moderna SARS-CoV-2 COVID-19, mRNA, LNP-S, preservative free 11/16/2020,10/20/2020 OPV 08/13/1996, 3,1991,09/28 Td Tetanus diptheria (Tdvax) 7yo and older 03/09/2003 Td Tetanus diptheria, preser vative free (Tenivac) 7yo and older 08/13/2015 Tdap Tetanus diptheria acell ular pertussis (Boostrix; Adacel) 7yo and older 05/26/2016,05/22/2007 Surgical History Surgery Date Site/Laterality Comments TONSILLECTOMY 2009 OTHER SURGICAL HISTORY 2014 Left left ulnar open reduction OTHER SURGICAL HISTORY date ? / prior surg shortening of ulna Medical History Medical History Date Comments Eczema DX:Eczema Disorder of both eustachian tubes DX:Disorder of both eustachian tubes Steel plate in left arm Moderate persistent asthma w ithout complication 10/10/2022 Alcohol abuse 10/10/2022 Anxiety 06/15/2021 Migraine 03/29/2020 Family History Medical History Relation Name Comments [...] Types Packs/Day Years Used Date Smoking Tobacco: Former Cigarettes Smokeless Tobacco: Never Tobacco Cessation:Counseling Given: Not Answered Alcohol Use Standard Drinks/Week Comments Yes 0 (1 standard drink = 0.6 oz pur e alcohol) 5/day Financial Risk Answer Date Recorded How hard is it for you to pa y for the very basics like food, housing, medical care, and air conditioning / heating? Not very hard 04/01/2025 Transportation Answer Date Recorded Has the lack of transportati on kept you from meetings, work, or from getting things needed for daily living? No Has the lack of transportati on kept you from medical appointments or from getting medications? No 04/01/2025 Food Risk Answer Date Recorded Within the past 12 months we worried whether our food would run out before we got money to buy more. Never true 04/01/2025 Within the past 12 months th e food we bought just didn't last and we didn't have money to get more. Never true 04/01/2025 Living Situation Answer Date Recorded What is your living situation? Unrecognized valu e 04/01/2025 Comments No Sex and Gender Information Value Date Recorded Sex Assigned at Not on file Legal Sex Female 12:53 PM EST Gender Identity Not on file Sexual Orientation Not on file Obstetrics History Last Filed Vital Signs Vital Sign Reading Time Taken Comments Blood Pressure 109/78 03/31/2025 3:37 PM EDT Pulse 80 03/31/2025 3:37 PM EDT Temperature 36.3 C (97.3 F) 03/31/2025 3:37 PM EDT Respiratory Rate 16 03/31/2025 3:37 PM EDT Oxygen Saturation 98% 03/31/2025 3:37 PM EDT Inhaled Oxygen Concentration - - Weight 96.2 kg (212 lb) 03/31/2025 3:37 PM EDT Height 167.6 cm (5' 6 ) 03/31/2025 3:37 PM EDT Body Mass Index 34.22 03/31/2025 3:37 PM EDT Plan of Treatment Upcoming Encounters Date Type Department Care Team (Late st Contact Info) Description 05/11/2025 3:30 PM EST Consult Orthopedic Surgery - [place] [address] [facility] [address] [place] [phone] Rashad Barney, DPM [address] [place] [phone] 05/18/2025 3:15 PM EST Ancillary Procedure Pulmonology [facility] [address] [facility] [address] [place] [phone] 05/18/2025 4:25 PM EST Office Visit Pulmonology [address] [phone] Carolina Gonzalez, JOSE RAUL [address] [place] [phone] Health Maintenance Due Date Last Done Comments Hepatitis A Vaccines (1 of 2 - Risk 2-dose series) 2010 Pneumococcal Vaccine: Pediatrics (0 to 5 Years) and At-Risk Patients (6 to 49 Years) (1 of 2 - PCV) 2010 Cervical Cancer Screening: Pap Smear 2012 HIV Screening 05/30/2022 Hepatitis C Screening 05/30/2022 Depression Screening 07/02/2024 08/13/2023 Social Influencers of Health Screening 04/01/2026 04/01/2025 DTaP,Tdap,and Td Vaccines (10 - Td or Tdap) 05/26/2026 05/26/2016, 08/13/2015, 05/22/2007, Additional history exists Cholesterol Screening (Lipid Panel) 04/07/2030 04/07/2025, 12/20/2022 RSV Immunization Adult Patients (1 - 1-dose 75+ series) 2066 HIB Vaccines Completed 12/01/1992, 10/1991, 1991, Additional history exists IPV Vaccines Completed 08/13/1996, 03/03, 1991, Additional history exists MMR Vaccines Completed 08/13/1996, 12/01/1992 Hepatitis B Vaccines Completed 10/29/1996, 08/13/1996, 05/30/1995 Meningococcal ACWY Vaccine Aged Out 01/24/2006 N o longer eligible based on patient's age to complete this topic HPV Vaccines Completed 11/20/2007, 07/03, 05/22/2007 Influenza Vaccine Discontinued 06/19/2019, , 08/28/2008 COVID-19 Vaccine Discontinued 11/16/2020, 10/20/2020 Meningococcal B Vaccine Aged Out No l onger eligible based on patient's age to complete this topic RSV Immunization Patients Under 20 months Aged Out No longer eligible based on patient's age to complete this topic Varicella Vaccines Aged Out No longer eligible based on patient's age to complete this topic Procedures Procedure Name Priority Date/Time Associated Diagnosis Comments CBC WITH AUTO DIFFERENTIAL Routine 04/07/2025 9:00 AM EDT Adult general medical examination Chronic shortness of breath CBC AND DIFFERENTIAL Routine 04/07/2025 9:00 AM EDT Adult general medical examination Chronic shortness of breath COMPREHENSIVE METABOLIC PANEL Routine 04/07/2025 9:00 AM EDT Adult general medical examination THYROID STIMULATING HORMONE WITH REFLEX TO FREE T4 AND FREE T3 Routine 04/07/2025 9:00 AM EDT Adult general medical examination Obesity (BMI 30-39.9) Chronic shortness of breath LIPID PANEL WITH REFLEX TO DIRECT LDL Routine 04/07/2025 9:00 AM EDT Adult general medical examination B-TYPE NATRIURETIC PEPTIDE Routine 04/07/2025 9:00 AM EDT Chronic shortness of breath D-DIMER Routine 04/07/2025 9:00 AM EDT Chronic shortness of breath AMYLASE Routine 04/07/2025 9:00 AM EDT Epigastric pain LIPASE Routine 04/07/2025 9:00 AM EDT Epigastric pain ECG 12-LEAD Routine 04/02/2025 11:04 AM EDT Chronic shortness of breath Epigastric pain XR ANKLE 3+ VIEWS RIGHT Routine 03/03/2025 9:54 AM EDT Chronic pain of right ankle HM DEPRESSION SCREENING Routine 08/13/2023 from Last 3 Months or Most Recently Relevant to Health Maintenance Results * Thyroid stimulating hormone with reflex to free t4 and free t3 (04/07/2025 9:00 AM EDT) [facility] Signature TSH 1.31 0.40 - 4.00 mcIU/mL LAB CHEMISTRY METHOD 04/07/2025 1:17 PM EDT [facility] Blood Venous blood specimen / Unknown Venipuncture / Unknown 04/07/2025 9:00 AM EDT 04/07/2025 9:00 AM EDT us Rosalee CASTRO LAB BLOOD ORDERABLES Final Resul t [facility] [address] [place] [address], [place] [phone] * Lipid panel with reflex to direct LDL (04/07/2025 9:00 AM EDT) Cholesterol 139 0 - 200 mg/dL LAB CHEMISTRY METHOD 04/07/2025 12:35 PM EDT [facility] Triglycerides 106 0 - 150 mg/dL LAB CHEMISTRY METHOD 04/07/2025 12:35 PM [facility] HDL 40 >=40 mg/dL LAB CHEMISTRY METHOD 04/07/2025 12:35 PM T [facility] LDL Calculated 78 0 - 100 mg/dL LAB CHEMISTRY METHOD 04/07/2025 12:35 PM T [facility] Comment:Estimated LDL Calcul ated using equation: Total cholesterol - HDL cholesterol - (Triglycerides/5) VLDL Cholesterol Omid 21.2 mg/dL LAB CHEMISTRY METHOD 04/07/2025 12:35 PM T [facility] Non HDL Chol. (LDL+VLDL) 99 <145 mg/dL LAB CHEMISTRY METHOD 04/07/2025 12:35 PM T [facility] Chol/HDL Ratio 3.5 0.0 - 4.4 LAB CHEMISTRY METHOD 04/07/2025 12:35 PM [facility] Blood Venous blood specimen / Unknown Venipuncture / Unknown 04/07/2025 9:00 AM EDT 04/07/2025 9:00 AM EDT us Rosalee CASTRO LAB BLOOD ORDERABLES Final Resul t [facility] [address] [place] [address], * (ABNORMAL) CBC auto differential (04/07/2025 9:00 AM EDT) WBC 10.8 4.8 - 10.8 K/mcL LAB HEMETOLOGY METHOD 04/07/2025 11:11 AM T [facility] RBC 4.80 3.80 - 4.80 M/[facility] LAB HEMETOLOGY METHOD 04/07/2025 11:11 AM [facility] Hemoglobin 14.6 11.5 - 16.0 g/dL LAB HEMETOLOGY METHOD 04/07/2025 11:11 AM [facility] Hematocrit 44.6 35.0 - 47.0 % LAB HEMETOLOGY METHOD 04/07/2025 11:11 AM [facility] MCV 92.1 79.0 - 98.0 FL LAB HEMETOLOGY METHOD 04/07/2025 11:11 AM [facility] MCH 30.2 27.0 - 32.0 pcg LAB HEMETOLOGY METHOD 04/07/2025 11:11 AM [facility] MCHC 32.7 32.0 - 37.0 g/dL LAB HEMETOLOGY METHOD 04/07/2025 11:11 AM [facility] RDW 12.8 11.0 - 15.0 % LAB HEMETOLOGY METHOD 04/07/2025 11:11 AM [facility] Platelets 262 130 - 400 K/mcL LAB HEMETOLOGY METHOD 04/07/2025 11:11 AM [facility] MPV 11.9(H) 7.0 - 11.0 FL LAB HEMETOLOGY METHOD 04/07/2025 11:11 AM [facility] NRBC 0.0 <1.0 % LAB HEMETOLOGY METHOD 04/07/2025 11:11 AM [facility] NRBC Absolute 0.00 <0.10 K/mcL LAB HEMETOLOGY METHOD 04/07/2025 11:11 AM [facility] Neutrophils Relative 67.6 % LAB HEMETOLOGY METHOD 04/07/2025 11:11 AM [facility] Lymphocytes Relative 21.5 % LAB HEMETOLOGY METHOD 04/07/2025 11:11 AM [facility] Monocytes Relative 6.9 % LAB HEMETOLOGY METHOD 04/07/2025 11:11 AM [facility] Eosinophils Relative 2.6 % LAB HEMETOLOGY METHOD 04/07/2025 11:11 AM [facility] Basophils Relative 0.5 % LAB HEMETOLOGY METHOD 04/07/2025 11:11 AM [facility] Immature Granulocytes Relative 0.9 % LAB HEMETOLOGY METHOD 04/07/2025 11:11 AM [facility] Neutrophils Absolute 7.28(H) 1.50 - 7.00 K/mcL LAB HEMETOLOGY METHOD 04/07/2025 11:11 AM [facility] Lymphocytes Absolute 2.32 1.00 - 5.00 K/mcL LAB HEMETOLOGY METHOD 04/07/2025 11:11 AM [facility] Monocytes Absolute 0.74 0.20 - 1.00 K/mcL LAB HEMETOLOGY METHOD 04/07/2025 11:11 AM [facility] Eosinophils Absolute 0.28 0.00 - 0.50 K/mcL LAB HEMETOLOGY METHOD 04/07/2025 11:11 AM [facility] Basophils Absolute 0.05 0.00 - 0.20 K/mcL LAB HEMETOLOGY METHOD 04/07/2025 11:11 AM EDT [facility] Immature Granulocytes Absolute 0.10(H) 0.00 - 0.03 K/mcL LAB HEMETOLOGY METHOD 04/07/2025 11:11 AM EDT [facility] Blood Venous blood specimen / Unknown Venipuncture / Unknown 04/07/2025 9:00 AM EDT 04/07/2025 9:00 AM EDT Rosalee CASTRO LAB BLOOD ORDERABLES Final Resul t Performing Organization Address [facility]/ZIP Co de Phone Number [facility] [address] [place] [address], [place] [phone] * D-Dimer (04/07/2025 9:00 AM EDT) D-Dimer, Quant (D-DU) 207 <=230 ng/mL DDU LAB COAGULATION METHOD 04/07/2025 11:06 AM EDT [facility] Blood Venous blood specimen / Unknown Venipuncture / Unknown 04/07/2025 9:00 AM EDT 04/07/2025 9:00 AM EDT Narrative [facility] - 04/07/2025 11:06 AM EDT D-Dimer <230 ng/mL (D-Dimer units) is the threshold for exclusion of DVT/PE. D-Dimer may be elevated in: Critically ill, severely infected, trauma patients, DIC, acute CVA, acute NM, unstable angina, AF, old age, , and smoking. D-Dimer may be decreased with: Initiation of heparin therapy and oral anticoagulants. us Rosalee CASTRO LAB BLOOD ORDERABLES Final Resul t Performing Organization Address City/[facility]/ZIP Co de Phone Number [facility] [address] [place] [address], [place] [phone] * B-type natriuretic peptide (04/07/2025 9:00 AM EDT) BNP 3 <=100 pcg/mL LAB CHEMISTRY METHOD 04/07/2025 2:25 PM EDT [facility] Blood Venous blood specimen / Unknown Venipuncture / Unknown 04/07/2025 9:00 AM EDT 04/07/2025 9:00 AM EDT us Rosalee CASTRO LAB BLOOD ORDERABLES Final Resul t [facility] [address] [place] [address], [place] [phone] * Lipase (04/07/2025 9:00 AM EDT) Pathologist [facility] Lipase 34 13 - 75 unit/L LAB CHEMISTRY METHOD 04/07/2025 12:31 PM EDT [facility] Blood Venous blood specimen / Unknown Venipuncture / Unknown 04/07/2025 9:00 AM EDT 04/07/2025 9:00 AM EDT us Rosalee CASTRO LAB BLOOD ORDERABLES Final Resul t Performing Organization Address [facility] Co de Phone Number [facility] [address] [place] [address], [place] [phone] * Amylase (04/07/2025 9:00 AM EDT) Pathologist [facility] Amylase 33 25 - 115 unit/L LAB CHEMISTRY METHOD 04/07/2025 12:31 PM EDT [facility] Blood Venous blood specimen / Unknown Venipuncture / Unknown 04/07/2025 9:00 AM EDT 04/07/2025 9:00 AM EDT us Rosalee CASTRO LAB BLOOD ORDERABLES Final Resul t Performing Organization Address City/[facility]/ZIP Co de Phone Number [facility] [address] [place] [address], [place] [phone] * (ABNORMAL) Comprehensive metabolic panel (04/07/2025 9:00 AM EDT) Sodium 138 133 - 145 mmol/L LAB CHEMISTRY METHOD 04/07/2025 12:35 PM [facility] Potassium 4.4 3.5 - 5.5 mmol/L LAB CHEMISTRY METHOD 04/07/2025 12:35 PM [facility] Chloride 107 96 - 110 mmol/L LAB CHEMISTRY METHOD 04/07/2025 12:35 PM [facility] CO2 22 21 - 32 mmol/L LAB CHEMISTRY METHOD 04/07/2025 12:35 PM [facility] Anion Gap 9 3 - 11 LAB CHEMISTRY METHOD 04/07/2025 12:35 PM [facility] Glucose 106(H) 70 - 100 mg/dL LAB CHEMISTRY METHOD 04/07/2025 12:35 PM [facility] BUN 15 5 - 25 mg/dL LAB CHEMISTRY METHOD 04/07/2025 12:35 PM [facility] Creatinine 0.95 0.50 - 1.10 mg/dL LAB CHEMISTRY METHOD 04/07/2025 12:35 PM [facility] eGFR 81 >=60 mL/min/1. 73m2 LAB CHEMISTRY METHOD 04/07/2025 12:35 PM [facility] Comment:Calculation based on the Chronic Kidney Disease Epidemiology Collaboration (CKD-EPI) equation refit without adjustment for race. BUN/Creatinine Ratio 15.8 LAB CHEMISTRY METHOD 04/07/2025 12:35 PM [facility] Calcium 8.7 8.5 - 10.5 mg/dL LAB CHEMISTRY METHOD 04/07/2025 12:35 PM [facility] AST (SGOT) 19 10 - 42 unit/L LAB CHEMISTRY METHOD 04/07/2025 12:35 PM EDT [facility] ALT (SGPT) 24 10 - 60 unit/L LAB CHEMISTRY METHOD 04/07/2025 12:35 PM EDT [facility] Alkaline Phosphatase 126(H) 42 - 121 unit/L LAB CHEMISTRY METHOD 04/07/2025 12:35 PM EDT [facility] Total Protein 7.3 6.0 - 8.0 g/dL LAB CHEMISTRY METHOD 04/07/2025 12:35 PM EDT [facility] Albumin 4.0 3.2 - 5.0 g/dL LAB CHEMISTRY METHOD 04/07/2025 12:35 PM EDT [facility] Total Bilirubin 0.4 0.0 - 1.4 mg/dL LAB CHEMISTRY METHOD 04/07/2025 12:35 PM EDT [facility] Blood Venous blood specimen / Unknown Venipuncture / Unknown 04/07/2025 9:00 AM EDT 04/07/2025 9:00 AM EDT Rosalee CASTRO LAB BLOOD ORDERABLES Final Resul t [facility] [address] [place] [address], [place] [phone] * ECG 12 lead (04/02/2025 11:04 AM EDT) Impressions Candice Mobley MA - 04/02/2025 11:04 AM EDT EKG: Results reviewed with Dr. Walters. EKG: Rate 74 bpm. Sinus rhythm. Nonspecific ST-T wave changes. Overall stable compared to previous tracing from 12/18/2022. us Rosalee CASTRO ECG ORDERABLES Final Result * XR Ankle 3+ Views Right (03/03/2025 9:54 AM EDT) Anatomical Region Laterality Modality Lower Extremities, Ankle Right Radiogr aphic Imaging 03/03/2025 9:59 AM EDT Impressions 03/03/2025 10:03 AM EDT No fracture or dislocation of the right ankle. -------- FINAL REPORT -------- Dictated By: Abril Ponce Dictated Date: 03/03/2025 09:59 ET Assigned Physician: Abril Ponce Reviewed and Electronically Signed By: Abril Ponce Signed Date: 03/03/2025 10:03 ET Workstation ID: [id number] Transcribed By: Self Edit Transcribed Date: 03/03/2025 09:59 ET Narrative 03/03/2025 10:03 AM EDT HISTORY: chronic pain, previous fx TECHNIQUE: Three views radiographs of the right ankle COMPARISON: None FINDINGS: AP, lateral and oblique radiographs of the right ankle demonstrates normal bony mineralization with no fracture or malalignment. The ankle mortise is intact. Soft tissues are unremarkable. Procedure Note Abril Ponce MD - 03/03/2025 HISTORY: chronic pain, previous fx TECHNIQUE: Three views radiographs of the right ankle COMPARISON: None FINDINGS: AP, lateral and oblique radiographs of the right ankle demonstrates normalbony mineralization with no fracture or malalignment. The ankle mortiseis intact. Soft tissues are unremarkable. IMPRESSION: No fracture or dislocation of the right ankle. -------- FINAL REPORT -------- Dictated By: Abril Ponce Dictated Date: 03/03/2025 09:59 ET Assigned Physician: Abril Ponce Reviewed and Electronically Signed By: Abril Ponce Signed Date: 03/03/2025 10:03 ET Workstation ID: [id number] Transcribed By: Self Edit Transcribed Date: 03/03/2025 09:59 ET Wendie Johnson MD IMG XR PROCEDURES Final Result * Depression Screening (08/13/2023) Depression Screening abstracted Historical Provider HEALTH MAINTENANCE Final Result from Last 3 Months or Most Recently Relevant to Health Maintenance Insurance [facility] Care Teams Clinique Counter Manager Relationship Specialty Start Date End Date Wendie Johnson MD [address] [place] [phone] PCP - General Internal Medicine 10/25/15
--- OUTSIDE RECORDS SUMMARY | 2025-05-01 09:19 | XMS_ITS ---
Author Name [facility] Organization Unknown Care Team Organization Name Specialty Phone Email Start Date End Da te [facility] Wendie Johnson Primary Care 05/09/2022 4
--- OUTSIDE RECORDS SUMMARY | 2025-05-01 09:19 | XMS_ITS | Encounter Summary ---
Author Organization [facility] Address [address] [place] [address] Care Team Providers Care City Auditor Name Role Phone Wendie Johnson MD Primary Care Provider [phone] Encounter Details Date Type Department Care Team (Late Contact Info) Description 07/31/2024 Lab Requisition [facility] - Main Lab [address] [facility] [place] [phone] Kimberley Miranda MD [address] [facility] [address] [place] [phone] Acute vaginitis Social History Tobacco Use Types [...] as of this encounter Plan of Treatment Upcoming Encounters Date Type Department Care Team (Late st Contact Info) Description 05/11/2025 3:30 PM EST Consult Orthopedic Surgery - [place] [address] [facility] [address] [place] [phone] Rashad Barney DPM [address] [place] [phone] 05/18/2025 3:15 PM EST Ancillary Procedure Pulmonology - [place] [address] [facility] [address] [place] [phone] 05/18/2025 4:25 PM EST Office Visit Pulmonology - [place] [address] [facility] [address] [place] [phone] Carolina Gonzalez, JOSE RAUL [address] [place] [address] documented as of this encounter Procedures Procedure Name Priority Date/Time Associated Diagnosis Comments VAGINITIS PATHOGENS BY PCR Routine 07/31/2024 12:00 AM EST Acute vaginitis documented in this encounter Results * (ABNORMAL) Vaginitis pathogens molecular study (07/31/2024 12:00 AM EST) Trichomonas vaginalis Negative Negative 08/01/2024 12:47 PM EST [facility] Gardnerella vaginalis Positive(A) Negative 08/01/2024 12:47 PM EST [facility] Cara Species Negative Negative 12:47 PM EST [facility] Swab Vaginal structure / Unknown 07/31/2024 07/31/2024 12:43 PM EST us Kimberley Miranda MD LAB MICROBIOLOGY - GENER AL ORDERABLES Final Result [facility] [address] [place] [address], documented in this encounter Visit Diagnoses Diagnosis Acute vaginitis Unspecified vaginitis and vulvovaginitis documented in this encounter Care Teams City Auditor Relationship Specialty Start Date End Date Wendie Johnson MD [address] [place] [address] PCP - General Internal Medicine 10/25/15 documented as of this encounter
--- OUTSIDE RECORDS SUMMARY | 2025-05-01 09:20 | XMS_ITS | Clinical Summary ---
Author Organization [facility] Address [address] [place] [phone] Phone Care Team Providers Care Net Lead Developer Name Role Phone Unavailable Primary Care Provider [...] AM EST Pulse - - Temperature 36.4 C (97.5 F) 08/25/2011 12:00 AM EST Respiratory Rate - - Oxygen Saturation - - Inhaled Oxygen Concentration - - Weight 58.7 kg (129 lb 8 oz) 08/25/2011 12:00 AM EST Height 165.1 cm (5' 5 ) 06/14/2010 12:00 AM EST Body Mass Index 21.55 06/14/2010 12:00 AM EST Plan of Treatment Health Maintenance Due Date Last Done Comments Varicella Vaccines (1 of 2 - 13+ 2-dose series) 2004 DTaP,Tdap,and Td Vaccines (7 - Td or Tdap) 05/22/2017 05/22/2007, 03/09/2003, 10/29/1996, Additional history exists Influenza Vaccines (#1) 2025 06/14/2010, 08/28 COVID-19 Vaccine ( season) 2025 HIB Vaccines Completed 12/01/1992, 10/1991, 1991, Additional [...]
--- OUTSIDE RECORDS SUMMARY | 2025-05-01 09:20 | XMS_ITS | Encounter Summary ---
Author Organization [facility] Address [address] [place] [phone] Phone Care Team Providers Care Animal Shelter Manager Name Role Phone Arely Bhardwaj MD Primary Care Provider Encounter Details Date Type Department Care Team (Late st Contact Info) Description 10/06/2009 Documentation [facility] [address] [place] [address] Family Medicine, Physician [address] [place], [place] [phone] Social History Tobacco Use Types Packs/Day Years [...] on filedocumented in this encounter Care Teams Animal Shelter Manager Relationship Specialty Start Date End Date Arely Bhardwaj MD [address] [place] [address] [place] [address] PCP - General 02/09/17 08/30/22 documented as of this encounter
--- OUTSIDE RECORDS SUMMARY | 2025-05-01 09:20 | XMS_ITS | Encounter Summary ---
Author Organization [facility] Address [address] [place] [phone] Phone Care Team Providers Care Technical Support Agent Name Role Phone Arely Bhardwaj MD Primary Care Provider Encounter Details Date Type Department Care Team (Late st Contact Info) Description 02/15/2017 Conversion Encounter [facility] [address] [place] [address] Social History Tobacco Use Types Packs/Day Years [...] on filedocumented in this encounter Care Teams Technical Support Agent Relationship Specialty Start Date End Date Arely Bhardwaj MD [address] [place] [address] PCP - General 02/09/17 08/30/22 documented as of this encounter
--- OUTSIDE RECORDS SUMMARY | 2025-05-01 09:20 | XMS_ITS | Encounter Summary ---
Author Organization [facility] Address [address] [place] [phone] Phone Care Team Providers Care Geophysicist Name Role Phone Arely Bhardwaj MD Primary Care Provider Encounter Details Date Type Department Care Team (Late st Contact Info) Description 11/07/2011 Documentation [facility] [place] [facility] [address] [place] [address] Family Medicine, Physician [address] [place], [place] [phone] Social History Tobacco Use Types Packs/Day Years [...] on filedocumented in this encounter Care Teams Geophysicist Relationship Specialty Start Date End Date Arely Bhardwaj MD [address] [place] [address] [place] [address] PCP - General 02/09/17 08/30/22 documented as of this encounter
--- OUTSIDE RECORDS SUMMARY | 2025-05-01 09:20 | XMS_ITS | Data Portability ---
Author Organization [facility] [place] [facility], [address] Address [address] [place] [address] Care Team Providers Care Line Helper Name Role Phone ANGELA DAWN Primary Care Provider Assessment No assessment recorded. Plan of Treatment Reminders Order Date Submit Date Provider Last Modified By Organization Details Last Modified Time Details Appointments None recorded. Lab streptococc us group A, culture, throat 2022 023 [place] [facility] ([facility], [address] [place] [address], [place], [address], 3 12:06:05 rapid SARS CoV 2 Ag, QL IA, respiratory specimen 2022 023 [email or web address] _[facility], [address] [place] [address], [address], 3 19:47:48 rapid strep group A, throat 2022 023 fiz3 _[facility], [address] [place] [address], [address], 3 19:47:48 Referral emergency medicine referral - EKG seem normal , sharp chest pain started today. no radiation, also have epigastric pain central chest pain more towards the left then right. Need to rule out Acute MS. 2022 023 acardinal 3 [facility] Emergency Department, [address] [place], [address], 3 18:09:56 orthopedic surgeon referral - right knee pain x 3 weeks getting worse , X-ray negative for any acute fracture. need further evaluation to rule out meniscus injury. 2022 023 alonso wilburn [facility], [address] [place] [address] [place], [address], 3 14:50:44 Procedures None recorded. Surgeries None recorded. Imaging electrocard iogram 2022 023 acardinal 3 [facility], [address] [place], [address], 3 18:09:56 XR, knee, 3 view 2022 023 [place] [facility], [address] [place] [address], [address], 3 14:56:59 Medication Orders betamethaso ne dipropionat e 0.05 % topical ointment 2023 024 [facility]armacy #2071, [address] [place], [address], 4 10:12:13 clotrimazol e 1 % topical cream 2023 024 [facility]armacy #2071, [address] [place], [address], 4 10:12:12 cyclobenzap rine 10 mg tablet 2023 024 [facility]/Pharmacy #2071, [address] [place], [address], 4 09:44:57 Medrol (Rafita) 4 mg tablets in a dose pack 2023 024 [facility]/Pharmacy #2071, [address] [place], [address], 4 17:54:34 naproxen 500 mg tablet 2022 023 [email or web address]/Pharmacy #2071, [address] [place], [address], 3 14:46:51 amoxicillin 875 mg tablet 2022 023 [facility] [address]/Pharmacy [facility]2071, [address] [place], [address], 3 13:09:00 Allergy Relief (fluticason e) 50 mcg/actuati on nasal spray,suspe nsion [address]/Pharmacy #2071, [address] [place], [address], 3 19:47:48 prednisone 20 mg tablet [email or web address]/Pharmacy #2071, [address] [place], [address], 3 13:10:13 fexofenadin e-pseudoeph edrine ER 180 mg-240 mg tablet,ext. release 24 hr 2022 023 [email or web address] 31 [facility], [address] [place], [address], 4 17:50:24 albuterol sulfate HFA 90 mcg/actuati on aerosol inhaler 2022 023 ANTONIO [facility], [address] [place], [address], 3 19:48:27 Patient TargetsNo targets recorded. Patient Instructions Encounter Date Encounter Id Patient Instructions Last Modified By Organization Details Last Modified Time 10/05/2022 [id number] cough: care instructions Not available 10/05/2022 19:47:48 sore throat: car e instructions [email or web address] Not available 10/05/2022 19:47:48 Sinusitis is an [...] care for yourself at home? Take an lfin-lnp-uzeprsq pain medicine. Avoid Ibuprofen, Aleve and Aspirin if . If the doctor prescribed antibiotics, take them as directed. Do not stop taking them just because you feel better. You need to take the full course of antibiotics. Be careful when taking ysnd-taq-quoiroo cold or influenza (flu) medicines and Tylenol [...] undesirable side effects. Probiotics can be purchased fqln-wff-ipwvjen at your pharmacy in the form of [...] results, typically take 3-5 days to return. Not available 10/05/2022 19:45:44 11/30/2022 [id number] knee pain or injury: care instructions [email or web address] Not available 11/30/2022 14:13:11 MUSCULOSKELETAL- KN EE: Inspection of the knee shows no erythema, ecchymosis, or swelling. FROM was full/limited Palpation of the calf and popliteal fossa showed no mass or tenderness. Palpation of patella was nontender. Palpation of medial and lateral joint lines were nontender. Patella g rind-test with NO crepitus. Valgus and Varus testing of the knee showed definite end points. Lateral collateral ligament was nontendner. Medial collateral ligament was nontender. Anterior Drawer Maneuvers: Normal Posterior Drawer maneuvers: Normal Gary's: Negative Melissa's Negative [email or web address] Not available 11/30/2022 14:13:19 12/18/2022 [id number] chest pain: care instructions Not available 12/18/2022 [...] heart attack. Not available 12/18/2022 17:48:17 01/01/2024 [id number] sciatica: exercises [email or web address] Not available 01/01/2024 17:54:31 01/11/2024 [id number] athlete's foot: care instructions Not available 01/11/2024 [...] then right. Need to rule out Acute MS. Referring Physician: [facility], Encounter Date: 12/18/2022 Results Created Date Observation Date Name Description Value Unit Range Abnormal Flag Note LastModifiedBy Organization Detail LastModifiedTime 10/06/19 23 10/09/2022 BETA STREP GP A CULTU RE beta strep gp A culture NEGATI VE Refer ence Range : Negat harjeet Not Available [facility] ([facility]) [address] [facility], [place], [address], 10/09/2022 12:06:05 10/06/19 23 10/05/2022 rapid SARS CoV 2 Ag, QL IA, respi rator y speci men Unknown Analyte negati ve Not Available [address] [place] [address], [place], [address], 10/05/2022 19:06:58 10/06/19 23 10/05/2022 rapid SARS CoV 2 Ag, QL IA, respi rator y speci men Unknown Analyte Normal =Negat harjeet Not Available [address] [place] [address], [place], [address], 10/05/2022 19:06:58 10/06/19 23 10/05/2022 rapid strep group A, throa t Unknown Analyte negati ve Not Available [address] [place] [address], [place], [address], 10/05/2022 19:07:14 10/06/19 23 10/05/2022 rapid strep group A, throa t Unknown Analyte Normal = Negati ve Not Available [address] [place] [address], [place], [address], 10/05/2022 19:07:14 12/01/19 23 11/30/2022 XR, knee, 3 view No observ ation record ed. [facility] [address] [place], [address], 11/30/2022 16:29:48 12/19/19 23 12/18/2022 elect rocar diogr am No observ ation record ed. ANTONIO [address] [place], [address], 12/18/2022 18:00:26 12/19/19 23 elect rocar diogr am No observ ation record ed. ANTONIO [facility] [address] [place], [address], 12/18/2022 19:26:17 Result Notes None recorded. Problems Name Problem SNOMED Code Status Onset Date Resolution Date Notes Provider Name and Address Organization Details Recorded Time Eczema 95079107 Active Chrissy Silveira null, PA - [facility] 4 09:45:45 Anxiety 74897357 Active 023 RIGOBERTO ALVAREZASHLEY null, PA - [facility] 3 19:04:12 Depressive disorder 81811855 Active 023 RIGOBERTO LUPICA null, PA - [facility] 3 19:04:19 Asthma 665324806 Active 023 RIGOBERTO LUPASHLEY null, PA - [facility] 3 19:04:24 Atopic dermatitis of bilateral hands 201623717 Active 024 Jose Martinez NP [address] [place], [address], [place] - [facility] 4 10:10:02 Tinea pedis 3508522 Active 024 Jose Martinez NP [address] [place], [address], [place] - [facility] 4 10:10:28 Problem Notes None recorded. Procedures Surgical History Date Name Laterality Status Provider Name and Address Organization Details Recorded Time tonsillectomy and adenoidectomy completed RIGOBERTO TELLEZ PA - [facility] 10/05/2022 19:06:00 procedure on upper arm completed RIGOBERTO LUPICA PA - [facility] 10/05/2022 19:06:18 Imaging Results None recorded. Procedure Notes None recorded. Medical Equipment None [...] Not Available Not Available No t Available Breo Ellipta 01/10 completed Not Available Not Available [...] Pulse oximetry Heart rate Respiratory rate Systolic And Diastolic Provider Name and Address Organization Details Last Updated DateTime 3 167.64 cm 28.7 kg/m2 65835.4 4 g 97 [degF] 97 % 97 % 93 /min 18 /min 109/79 mm[Hg] RIGOBERTO TELLEZ [place] - [facility] 3 19:09:30 Date Recorded Body height Body mass index (BMI) Body weight Pain severity - 0-10 verbal numeric rating [Score] - Reported Respiratory rate Oxygen saturation Oxygen saturation in Arterial blood by Pulse oximetry Heart rate Body temperature Systolic And Diastolic Provider Name and Address Organization Details Last Updated DateTime 3 167.64 cm 28.7 kg/m2 39708.4 4 g 7 18 /min 100 % 100 % 88 /min 97.8 [degF] 117/78 mm[Hg] CARO LLANOS RA [facility] 3 14:05:37 Date Recorded Body height Body mass index (BMI) Body weight Pain severity - 0-10 verbal numeric rating [Score] - Reported Respiratory rate Oxygen saturation Oxygen saturation in Arterial blood by Pulse oximetry Heart rate Body temperature Systolic And Diastolic Provider Name and Address Organization Details Last Updated DateTime 3 167.64 cm 28.7 kg/m2 72541.4 4 g 10 18 /min 98 % 98 % 92 /min 98.6 [degF] 121/84 mm[Hg] CARO LLANOS RA [facility] 3 17:32:51 Date Recorded Body height Body weight Oxygen saturation Oxygen saturation in Arterial blood by Pulse oximetry Pain severity - 0-10 verbal numeric rating [Score] - Reported Heart rate Respiratory rate Body temperature Systolic And Diastolic Provider Name and Address Organization Details Last Updated DateTime 4 167.64 cm 86001.5 9 g 99 % 99 % 9 71 /min 18 /min 97.4 [degF] 136/97 mm[Hg] Cammy Sutton [facility] 4 17:49:34 Date Recorded Body height Body mass index (BMI) Body weight Body temperature Respiratory rate Oxygen saturation Oxygen saturation in Arterial blood by Pulse oximetry Heart rate Systolic And Diastolic Provider Name and Address Organization Details Last Updated DateTime 4 167.64 cm 29.9 kg/m2 76708.5 9 g 98 [degF] 18 /min 97 % 97 % 61 /min 126/85 mm[Hg] Chrissy Silveira PA - [facility] 4 09:47:11 Social History Question Answer Notes LastModified by Organizat ion Details LastModified Time Tobacco Smoking Status Current Every Day Smoker RIGOBERTO TELLEZ alirio PA - [facility] 10/05/2022 19:05:43 Have You Had A Flu Shot This Season? Yes [email or web address] Information not available 01/01/2024 Have You Had Direct Contact, Or Contact During Intimacy, With Monkeypox Rash, Scabs, Or Body Fluids From A Person With Monkeypox? No Information not available 01/01/2024 What Was The Date Of Your Most Recent Tobacco Screening? 01/11/2024 [email or web address] Information not available 01/11/2024 How Much Tobacco Do You Smoke? 0.25 PPD 3 [email or web address] Information not available 10/05/2022 Have You Recently Traveled Abroad? No [email or web address] Information not available 10/05/2022 Sex: Unknown Functional Status Question Answer Note LastModified by Organizat ion Details LastModified Time Do you use any illicit or recreational drugs? No [email or web address] Information not available 10/05/2022 Do you or have you ever used any other forms of tobacco or nicotine? No [email or web address] Information not available 10/05/2022 What is your level of alcohol consumption? Heavy [email or web address] Information not available 10/05/2022 Mental Status None recorded. Family History Relationship Description Onset Age of this Age Resolved Age Notes LastModified by Organization Details LastModified Time Unspecified Relation Asthma [email or web address] Not available 023 19:04:39 Father No current problems or disability [email or web address] Not available 08/2023 17:50:47 Mother No current problems or disability Not available 08/2023 17:50:47 Medical History No medical history recorded. Gynecological History Statement/Question Response Date of LMP Is there any chance of ? No Obstetrics History GPAL:G 0 P 0 0 0 0 Immunizations Vaccine Type Date Status Note Provider Nam e and Address Organization Details Recorded Time Influenza, MDCK, quadrivalent, PF 9 completed CARO amezquita PA - [facility] 11/30/2022 13:08:41 COVID-19, mRNA, LNP-S, PF, 100 mcg/0.5mL dose or 50 mcg/0.25mL dose 1 completed CARO amezquita, PA - [facility] 11/30/2022 13:08:42 COVID-19, mRNA, LNP-S, PF, 100 mcg/0.5mL dose or 50 mcg/0.25mL dose 1 completed CARO amezquita, PA - [facility] 11/30/2022 13:08:42 Td (adult), 5 Lf tetanus toxoid, preservative free, adsorbed 6 completed CARO amezquita, PA - [facility] 11/30/2022 13:08:42 Past Encounters Encounter ID Performer Location Encounter Start Date Encounter Closed Date Diagnosis/Indication Diagnosis SNOMED-CT Code Diagnosis ICD10 Code Diagnosis IMO Codes Diagnosis Note [id number] [address] [place] [address] 08/23/2021 09:58:18 08/23/2021 12:41:47 [id number] [address] [place] [address] 07/20/2021 08:19:50 07/20/2021 12:40:08 [id number] [address] [place] [address] 10/16/2021 13:35:49 10/16/2021 14:40:45 [id number] [address] [place] [address] 01/06/2020 10:40:19 01/06/2020 11:04:53 [id number] [address] [place] [address] 03/03/2022 17:51:02 03/03/2022 20:07:01 [id number] [address] [place] [address] 11/04/2021 13:51:11 11/04/2021 14:50:15 [id number] [address] [place] [address] 09/29/2021 16:12:31 09/29/2021 17:30:47 [id number] Jose Martinez, JOSE RAUL [address] [facility] AMBROSE Rosenthal [address] 10/05/2022 18:58:02 10/06/2022 07:44:48 Cough 82756877 R05.9 Exposure t o SARS-CoV-2 472450821 Z20.822 Streptococ silviano sore throat 37093702 J02.0 Asthma 776375738 J45.90 9 [id number] Jose Martinez NP [address] [place] [address] 11/30/2022 12:09:13 11/30/2022 14:50:44 Pain of right knee joint 5584381489 98342 M25.561 [id number] Jose Martinez NP [address] [place] [address] 12/18/2022 17:21:35 12/18/2022 18:09:56 Chest pain 80406135 R07.9 911 was called and patient was transferre d to [facility] ED via ambulance and 2 EMT's. [id number] MATTHEW OWENS [address] [place] [address] 01/01/2024 17:39:29 01/01/2024 17:55:36 Right side sciatica 9011540087 12510 M54.31 Sciatica-- is an irritation of one [...] Pain. --You lose bladder or bowel control. [id number] [place] [address] [facility] [address] [place] [address] 01/11/2024 09:15:58 01/11/2024 10:17:10 Atopic dermatitis of bilateral hands 495843148 L20.9 Based on your presentati on and [...] that are tender Thank you for using [employer] today, please don't hesitate to call or reach out to us if you have any questions or concerns. Tinea pedis 1415814 B35. 3 What are ringworm, athlete's foot, [...] the infection is, it can look different: People with athlete's foot might instead have moist, raw skin between their toes, or flaking skin on the bottoms of their feet. People with jock itch often just have a rash on their groin. It usually starts in the fold where the thigh meets the groin area. Sometimes , especially in children, the fungus [...] places where the fungus might be, such as: A shower stall A locker room floor The area near a pool If you have a fungal infection on 1 part of your body, you can also spread it to other parts. For instance, a fungal infection on your feet could spread to your groin. How are fungal infections treated? e treatment for a fungal infection depends on which body part is affected: If you have a fungal infection on your scalp, you must take pills to kill the fungus. Treatment for scalp infections usually lasts 1 to 3 months. If you have a fungal infection on your feet, groin, or another body part, most of the time, you will not need pills. Instead, you can use a special gel, cream, lotion, or powder to kill the fungus. Treatment with these products lasts 2 to 4 weeks. If you have a fungal infection on [...] Recorded Advance Directives Directive None Recorded Payers Insurance Date Sequence Insurance Name Policy Number Policy Schmidt Covered Member ID Schmidt Member ID Guarantor Name 01/12/2024 1 [facility] (O) Gretchen [id number] Gretchen Tineo 01/01/2024 1 [facility] [facility] [employer] (MEDICAID REPLACEMENT - HMO) CHRISTINE Delgado [id number] Gretchen Tineo Notes Date Note Type Note Provider Name and Address Organization Details Recorded Time 10/06/19 23 text/htm l Sore throatReported by PatientSore ThroatFor associated symptoms, patient reportssore throat,hoarseness,coughing, andsinus pain/ congestionbut reportsno sputum production,no shortness of breath,no wheezing,no vomiting, andno nausea. For context, patient reportssick contactbut reportsno foreign travelandnon-smoker. For modifying factors, patient reportsexposed to strep non household. For source of patient information, patient reportsinformation obtained from patient,patient arrived at urgent care ambulatory, andlearning styles: auditory. For location, patient reportsthroat. For severity, patient reportsmild. For quality, patient reportssharpandburning. For onset/timing, patient reports3 days. CoughReported by Patient Jose Martinez NP [address] [place], [address], [place] - [facility] 10/05/2022 19:48:56 12/01/19 23 text/htm l KneeReported by PatientHPIFor associated symptoms, patient reportspopping/clickingbut reportsno weakness,no numbness,no tingling,no swelling,no redness,no warmth,no ecchymosis,no catching/locking,no buckling,no grinding,no instability,no radiation down leg,no drainage,no fever,no chills,no weight loss, andno change in bowel/bladder habits. For location, patient reportsright,anterior, andlateral. For quality, patient reportsaching,sharp,constant, andworsening. For severity, patient reportsmoderate. For duration, patient reports3 weeks. For timing, patient reportsacute. For context, patient reportssports injury. For alleviating factors, patient reportslimited weight bearing. For aggravating factors, patient reportswalking,lifting,twistin g, andweight bearing. For previous surgery, patient reportsnone. For prior imaging, patient reportsnone. For previous injections, patient reportsnone. For previous pt, patient reportsnone. For work related, patient reportsno. For working, patient reportsno. Jose Martinez NP [address] [place], [address], [employer] 11/30/2022 19:50:48 12/19/19 23 text/htm l Chest PainReported by PatientHPIFor quality, patient reportsachingandsharp. For context, patient reportsat rest. For aggravating factors, patient reportsworse with stress/emotional upset. For associated symptoms, patient reportschest discomfortbut reportsno dyspnea,no decrease in exercise capacity,no fatigue,no nocturnal episodes,no resting episodes,no associated palpitations, andno associated dizziness. For source of patient information, patient reportsinformation obtained from patient,patient arrived at urgent care ambulatory, andlearning styles: auditory. For location, patient reportschest,epigastrium,left substernal, anddoes not radiate. For severity, patient reportsmoderate. For duration, patient reportslasts hoursandstarted 1 days ago. For onset/timing, patient reportsabrupt onset without warning. Jose Martinez NP [address] [place], [address], [employer] 12/18/2022 18:09:50 01/01/20 24 text/htm l 33 y/o female here with R sided lower back pain radiating to her buttocks for 3 days. Was playing softball and slid to catch the ball right before it started MATTHEW Mccarthy [address] [place], [address], [place] - [facility] 01/01/2024 17:56:03 01/11/20 24 text/htm l UC Rash/Skin LesionReported by PatientHPIFor quality, patient reportsitchy,red, andspreading. For context, patient reportsother exposurebut reportsno new detergent or skin product,no recent change in medication,no exposure to hair dye,no expsoure to new clothes/jewelry,no recent travel,no recent illness,no pets/animals in home, andnot affiliated with chemicals/pesticides. For source of patient information, patient reportsinformation obtained from patientandpatient arrived at urgent care ambulatory(33 year old female presented with eczema on her armpits and hands also present on her flexor surface on/off since childhood. flare up.also complaint of athletes foot rash on her bilateral feet.). For location, patient reportsneck,arms,hands,legs, andfeet. For severity, patient reportsmoderate. For duration, patient reports2 days. For alleviating factors, patient reportsnothing gives relief. For associated symptoms, patient reportsno feverandno fatigue. For treatment history, patient reportsotc treatment ___ with no improvementandprescription topical treatment ___ with improvement. Jose Martinez NP [address] [place], [address], [place] - [facility] 01/11/2024 10:12:33 OBGyn Episode No OBEpisode recorded.
--- OUTSIDE RECORDS SUMMARY | 2025-05-01 09:20 | XMS_ITS | Encounter Summary ---
Author Organization [facility] Address [address] [place] [address] Care Team Providers Care Block Sawyer Name Role Phone Wendie Johnson MD Primary Care Provider [phone] Encounter Details Date Type Department Care Team (Late st Contact Info) Description 04/08/2025 Results Follow-Up Adult Medicine [facility] [address] [place], [place] [phone] Rosalee Martinez PA [address] [place], [place] Social History Tobacco Use Types Packs/Day Years Used Date Smoking Tobacco: Former Cigarettes Smokeless Tobacco: Never Alcohol Use Standard Drinks/Week [...] 3:30 PM EST Consult Orthopedic Surgery - [place] [address] [facility] [address] [place] [phone] Rashad Barney DPM [address] [place] [phone] 05/18/2025 3:15 PM EST Ancillary Procedure Pulmonology - [place] [address] [facility] [address] [place] [phone] 05/18/2025 4:25 PM EST Office Visit Pulmonology [facility] [address] [phone] Carolina Gonzalez, JOSE RAUL [address] [place] [address] documented as of this encounter Visit Diagnoses Not on filedocumented in this encounter Care Teams Block Sawyer Relationship Specialty Start Date End Date Wendie [place] MD [address] [place] [address] PCP - General Internal Medicine 10/25/15 documented as of this encounter
== END 2025-04-30 08:52 | disposition home or self-care (01) ==
LOC: HO.HOSX 08:51
PROVIDERS: Visit Provider Physician Assistant
DX: Z13.89 Encounter for screening for other disorder (principal)

== ENCOUNTER → 2025-05-05 08:24 | Outpatient (BNVA) | payer OTHER, SELFPAY | PROVIDERS: Visit Provider Registered Nurse | DX: S70.12XD Contusion of left thigh, subsequent encounter (principal); W50.3XXD Accidental bite by another person, subsequent encounter; Z02.79 Encounter for issue of other medical certificate | CPT/HCPCS: 99213 ==

== ENCOUNTER → 2025-05-12 15:46 | Outpatient (BNVA) | payer OTHER, SELFPAY | PROVIDERS: Visit Provider Registered Nurse | DX: S70.372D Other superficial bite of left thigh, subsequent encounter (principal); W50.3XXD Accidental bite by another person, subsequent encounter; Z02.79 Encounter for issue of other medical certificate | CPT/HCPCS: 99213 ==

== ENCOUNTER → 2025-06-09 08:08 | Outpatient (BNVA) | payer OTHER, SELFPAY | PROVIDERS: PCP Internal Medicine; Visit Provider Registered Nurse | DX: S70.372D Other superficial bite of left thigh, subsequent encounter (principal); W50.3XXD Accidental bite by another person, subsequent encounter; Z02.79 Encounter for issue of other medical certificate | CPT/HCPCS: 99213 ==

== ENCOUNTER 2025-06-29 08:50 | Outpatient (REF) | payer OTHER, SELFPAY ==
--- NOTE | ~2025-06-29 | XR_ITS ---
EXAMINATION: XR SHOULDER, RIGHT CLINICAL INFORMATION: M25.511 - Pain in right shoulder COMPARISON: None available. TECHNIQUE: AP external rotation, Grashey, scapular Y, and axillary views of the right shoulder. FINDINGS: The bones and soft tissues are normal. No fracture. Glenohumeral and acromioclavicular alignment is anatomic with normal joint space. No abnormal soft tissue calcifications. XR/XR shoulder RT min 2V IMPRESSION: Normal right shoulder. Electronically signed by: Sandor Dejesus MD 06/29/2025 02:14 PM DAVIS
--- OUTSIDE RECORDS SUMMARY | 2025-06-30 10:50 | XMS_ITS | Encounter Summary ---
Author Organization [facility] Address [address] [place] [address] Phone Care Team Providers Care Cereal Popper Name Role Phone Arely Bhardwaj MD Primary Care Provider Encounter Details Date Type Department Care Team (Late st Contact Info) Description 10/06/2009 Documentation [facility] [place] Family Medicine [address] [place] [address] Family Medicine, Physician [address] [place], [place] [phone] Social History Tobacco Use Types Packs/Day Years [...] on filedocumented in this encounter Care Teams Cereal Popper Relationship Specialty Start Date End Date Arely Bhardwaj MD [address] [place] [address] [place] [address] PCP - General 02/09/17 08/30/22 documented as of this encounter
--- OUTSIDE RECORDS SUMMARY | 2025-06-30 10:50 | XMS_ITS | Clinical Summary ---
Author Organization [facility] Address [address] [place] [phone] Phone Care Team Providers Care Septic Tank Installer Name Role Phone Unavailable Primary Care Provider [...]
--- OUTSIDE RECORDS SUMMARY | 2025-06-30 10:50 | XMS_ITS | Clinical Summary ---
Author Organization [address] Address [address] [place] [phone] Phone Care Team Providers Care Inter Fold Roll Cutter Name Role Phone Wendie Johnson MD Primary Care Provider [phone] Allergies Active Allergy Reactions Criticality Noted Date [...] Team Description 04/08/2025 Results Follow-Up Adult Medicine [facility] [address] [place] [phone] Rosalee Martinez PA 03/31/2025 3:30 PM EDT Office Visit Adult Medicine [facility] [address] [place] [phone] Rosalee Martinez PA Adult general medical examination [...] LAB CHEMISTRY METHOD 04/07/2025 1:17 PM EDT [facility] Blood Venous blood specimen / Unknown Venipuncture / Unknown 04/07/2025 9:00 AM EDT 04/07/2025 9:00 AM EDT us Rosalee CASTRO LAB BLOOD ORDERABLES Final Resul t [facility] [address] [place] [address], * Lipid panel with reflex to direct [...] CASTRO LAB BLOOD ORDERABLES Final Resul t [facility] [address] [place] [address], * (ABNORMAL) CBC auto differential (04/07/2025 9:00 AM EDT) Pathologist [facility] [place] WBC 10.8 4.8 - 10.8 K/mcL LAB HEMETOLOGY METHOD 04/07/2025 11:11 AM EDT [facility] RBC 4.80 3.80 - 4.80 M/mcL [...] LAB HEMETOLOGY METHOD 04/07/2025 11:11 AM EDT [facility] Basophils Absolute 0.05 0.00 - 0.20 K/[facility] LAB HEMETOLOGY METHOD 04/07/2025 11:11 AM EDT [facility] Immature Granulocytes Absolute 0.10(H) 0.00 - 0.03 K/[facility] LAB HEMETOLOGY METHOD 04/07/2025 11:11 AM EDT [facility] Blood Venous blood specimen / Unknown Venipuncture / Unknown 04/07/2025 9:00 AM EDT 04/07/2025 9:00 AM EDT Rosalee CASTRO LAB BLOOD ORDERABLES Final Resul t Performing Organization Address [facility]/ZIP Co de Phone Number [facility] [address] [place] [address], * D-Dimer (04/07/2025 9:00 AM EDT) D-Dimer, Quant (D-DU) 207 <=230 ng/mL DDU LAB COAGULATION METHOD 04/07/2025 11:06 AM EDT [facility] Blood Venous blood specimen / Unknown Venipuncture / Unknown 04/07/2025 9:00 AM EDT 04/07/2025 9:00 AM EDT Narrative [facility] - 04/07/2025 11:06 AM EDT D-Dimer <230 ng/mL (D-Dimer units) is the threshold for exclusion of DVT/PE. D-Dimer may be elevated in: Critically ill, severely infected, trauma patients, DIC, acute CVA, acute NV, unstable angina, AF, old age, , and smoking. D-Dimer may be decreased with: Initiation of heparin therapy and oral anticoagulants. Rosalee CASTRO LAB BLOOD ORDERABLES Final Resul t [facility] [address] [place] [address], [place] [phone] * B-type natriuretic peptide (04/07/2025 9:00 AM EDT) BNP 3 <=100 pcg/mL LAB CHEMISTRY METHOD 04/07/2025 2:25 PM EDT [facility] Blood Venous blood specimen / Unknown Venipuncture / Unknown 04/07/2025 9:00 AM EDT 04/07/2025 9:00 AM EDT us Rosalee CASTRO LAB BLOOD ORDERABLES Final Resul t Performing Organization Address City/[facility]/ZIP Co de Phone Number [facility] [address] [place] [address], [place] [phone] * Lipase (04/07/2025 9:00 AM EDT) Lipase 34 13 - 75 unit/L LAB CHEMISTRY METHOD 04/07/2025 12:31 PM EDT [facility] Blood Venous blood specimen / Unknown Venipuncture / Unknown 04/07/2025 9:00 AM EDT 04/07/2025 9:00 AM EDT us Rosalee CASTRO LAB BLOOD ORDERABLES Final Resul t [facility] [address] [place] [address], [place] [phone] * Amylase (04/07/2025 9:00 AM EDT) Amylase 33 25 - 115 unit/L LAB CHEMISTRY METHOD 04/07/2025 12:31 PM EDT [facility] Blood Venous blood specimen / Unknown Venipuncture / Unknown 04/07/2025 9:00 AM EDT 04/07/2025 9:00 AM EDT us Rosalee CASTRO LAB BLOOD ORDERABLES Final Resul t [facility] [address] [place] [address], * (ABNORMAL) Comprehensive metabolic panel (04/07/2025 9:00 [...] LAB CHEMISTRY METHOD 04/07/2025 12:35 PM EDT [facility] AST (SGOT) 19 10 - 42 unit/L LAB CHEMISTRY METHOD 04/07/2025 12:35 PM EDT [facility] ALT (SGPT) 24 10 - 60 unit/L LAB CHEMISTRY METHOD 04/07/2025 12:35 PM T [facility] Alkaline Phosphatase 126(H) 42 - 121 unit/L LAB CHEMISTRY METHOD 04/07/2025 12:35 PM EDT [facility] Total Protein 7.3 6.0 - 8.0 g/dL LAB CHEMISTRY METHOD 04/07/2025 12:35 PM [facility] Albumin 4.0 3.2 - 5.0 g/dL LAB CHEMISTRY METHOD 04/07/2025 12:35 PM [facility] Total Bilirubin 0.4 0.0 - 1.4 mg/dL LAB CHEMISTRY METHOD 04/07/2025 12:35 PM T [facility] Blood Venous blood specimen / Unknown Venipuncture / Unknown 04/07/2025 9:00 AM EDT 04/07/2025 9:00 AM EDT Rosalee CASTRO LAB BLOOD ORDERABLES Final Resul t [facility] [address] [place] [address], [place] [phone] * ECG 12 lead (04/02/2025 11:04 AM [...] Most Recently Relevant to Health Maintenance Insurance [facility] Care Teams Inter Fold Roll Cutter Relationship Specialty Start Date End Date Wendie Johnson MD [address] [place] [phone] PCP - General Internal Medicine 10/25/15
--- OUTSIDE RECORDS SUMMARY | 2025-06-30 10:50 | XMS_ITS | Encounter Summary ---
Author Organization [facility] Address [address] [place] [address] Care Team Providers Care Emergency Room Nurse Name Role Phone Wendie Johnson MD Primary Care Provider [phone] Encounter Details Date Type Department Care Team (Late st Contact Info) Description 07/31/2024 Lab Requisition [facility] - Main Lab [address] [place] [phone] Kimberley Miranda MD [address] [facility] [address] [place] [phone] Acute vaginitis Social History Tobacco Use Types [...] vaginalis Negative Negative 08/01/2024 12:47 PM EST [facility] ([facility]) [facility] Gardnerella vaginalis Positive(A) Negative 08/01/2024 12:47 PM EST [facility] Cara Species Negative Negative 12:47 PM EST [facility] Swab Vaginal structure / Unknown 07/31/2024 07/31/2024 12:43 PM EST us Kimberley Miranda MD LAB MICROBIOLOGY - GENER AL ORDERABLES Final Result [facility] [address] [place] [address], documented in this encounter Visit Diagnoses Diagnosis Acute vaginitis Unspecified vaginitis and vulvovaginitis documented in this encounter Care Teams Emergency Room Nurse Relationship Specialty Start Date End Date Wendie Johnson MD [address] [place] [phone] PCP - General Internal Medicine 10/25/15 documented as of this encounter
--- OUTSIDE RECORDS SUMMARY | 2025-06-30 10:50 | XMS_ITS | Encounter Summary ---
Author Organization [facility] Address [address] [place] [phone] Phone Care Team Providers Care Employment Assistant Name Role Phone Arely Bhardwaj MD Primary Care Provider Encounter Details Date Type Department Care Team (Late st Contact Info) Description 11/07/2011 Documentation [facility] Family Medicine [address] [place] [address] Family Medicine, Physician [address] [place], [place] [id number] Social History Tobacco Use Types Packs/Day Years [...] on filedocumented in this encounter Care Teams Employment Assistant Relationship Specialty Start Date End Date Arely Bhardwaj MD [address] [place] [address] [place] [address] PCP - General 02/09/17 08/30/22 documented as of this encounter
--- OUTSIDE RECORDS SUMMARY | 2025-06-30 10:50 | XMS_ITS | Encounter Summary ---
Author Organization [facility] Address [address] [place] [address] Phone Care Team Providers Care Pizza Chef Name Role Phone Arely Bhardwaj MD Primary Care Provider Encounter Details Date Type Department Care Team (Late st Contact Info) Description 02/15/2017 Conversion Encounter [facility] [address] [place] [address] Social History Tobacco Use Types Packs/Day Years [...] on filedocumented in this encounter Care Teams Pizza Chef Relationship Specialty Start Date End Date Arely Bhardwaj MD [address] [place] [address] PCP - General 02/09/17 08/30/22 documented as of this encounter
== END 2025-06-29 08:51 | disposition home or self-care (01) ==
LOC: HO.HOSX 08:50
PROVIDERS: Visit Provider Physician Assistant
DX: M75.81 Other shoulder lesions, right shoulder (principal); S52.209D Unspecified fracture of shaft of unspecified ulna, subsequent encounter for closed fracture with routine healing; X58.XXXD Exposure to other specified factors, subsequent encounter
CPT/HCPCS: 20610; 73030; 99212; J0665; J1100; J2003

== ENCOUNTER 2025-06-29 13:40 | Outpatient (AMB) | payer OTHER, SELFPAY ==
--- NOTE | 2025-06-29 13:55 | A.OFFVIS_ITS ---
Intake Visit Reasons: new prob RT shoulder pain Intake Note: Gretchen is a 34 year old right hand dominant female who presents today for a new problem visit with complaints of right shoulder pain. Patient reports pain in her shoulder that has been present for years that has been getting worse. Her pain is located at the anterior aspect of shoulder that travels towards the posterior side. Complaints of sharp, stabbing, shooting pain. She has cracking sounds with ROM. At times her arm becomes numb and tingling. Denies injury, however she mentions that she plays softball. No previous treatments. Allergies shellfish derived (SHELLFISH DERIVED) Allergy (Unknown, Verified 06/29/25 14:01) UNKNOWN Medication List - Last Reconciled 06/29/25 by Mauricio Darden PA-C albuterol sulfate 90 mcg/actuation 2 puffs inhalation Q4-6H PRN dupilumab (Dupixent) 200 mg subcut Q2W ibuprofen 800 mg PO Q8H PRN 30 days HPI Comments Details: History of Present Illness The patient is a 34 year old female presenting for evaluation of right shoulder pain. She reports the pain has been present for over three years and is constant, but exacerbated by certain activities. She plays softball, and activities like throwing worsen the pain. Associated symptoms include grinding, popping, shooting pains, and numbness that travels down her arm to her hand, which occurs throughout the day. Her sleep is disturbed due to difficulty finding a comfortable position. She feels she may also have carpal tunnel symptoms in her right wrist. The patient acknowledges past injuries related to softball but nothing recent. She has not had any prior treatment for the shoulder, including physical therapy or injections. She occasionally uses [id number] anti-inflammatory medication. 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 - Exercise: The patient plays softball, including indoor softball during the winter. [facility] Medical History No pertinent past medical history Surgical History History of surgery on arm Social History Patient Tobacco Use Status: Never used Tobacco Current occupational status: employed Current occupation: [employer] - Right Handed Review of Systems Narrative Review of Systems - Musculoskeletal: Reports constant right shoulder pain for over 3 years, exacerbated by activity. - Reports grinding, popping, and shooting pains in the shoulder. - Neurological: Reports numbness that travels down the right arm to the hand, occurring throughout the day and upon waking, requiring her to shake her arm to get feeling back. - Constitutional: Reports sleep disturbance due to shoulder pain. - Allergic/Immunologic: Reports an allergy to shellfish. Const All systems reviewed & are unremarkable except as noted in HPI and below Physical Exam Exam Exam: Physical Exam - Right Shoulder: - Range of Motion: Active forward flexion is full. - Active external rotation with elbows adducted is full. - Active internal rotation is grossly intact as patient can reach behind her back. - Strength: Resisted external rotation is intact. - Belly-press test for subscapularis is intact. - Special Tests: Pain is elicited with palpation of the anterior shoulder. - Pain is reported with resisted forward flexion, worse with the thumb down (positive Zenia's test) compared to thumb up. - Pain is reported with cross-body adduction. - Passive internal rotation with forward elevation elicits significant pain, positive for impingement. Office Procedures AMB Joint Injection/Aspiration Joint Injection/Aspiration Primary Site: Right Shoulder Prep: site was prepped using aseptic technique, ethochloride spray was applied and injection warnings given Injected: 40 mg of, Decadron, with 3 mL of, 1% plain Lidocaine, 0.25% Bupivacaine and in the subcromial space Approach Used: posterolateral Procedure: The patient tolerated the procedure well and there was some relief with the local anesthesia Coding 45393 - Glenohumeral/Tronchanteric Bursa/Intraarticular Procedure code (CPT) selection complete Results Reviewed Results Reviewed: Xrays were obtained in the office today and personally reviewed by me of the [facility] shoulder show well preserved joint space Assessment & Plan Assessment & Plan (1) Tendinitis of right rotator cuff: Code(s): M75.81 - Other shoulder lesions, right shoulder Category: Medical Plan Plan The patient's chronic right shoulder pain, grinding, and pain with overhead activities are consistent with subacromial impingement syndrome and rotator cuff irritation. The associated numbness traveling down the arm is likely from nerve irritation secondary to local inflammation. Physical exam maneuvers that compress the subacromial space were positive, supporting this diagnosis. The goal is to prevent further damage to the rotator cuff. The plan is to start with a cortisone injection to reduce inflammation and pain, which should also help with sleep. After allowing the injection to take effect for one to two weeks, the patient is to begin physical therapy. Therapy will focus on scapular stabilization and strengthening of the rotator cuff muscles to improve shoulder mechanics and prevent recurrent grinding and injury, especially during throwing. A prescription for ibuprofen 800 mg will be sent to [facility] for acute flare-ups, with instructions to take it with food. A muscle relaxer was deemed not helpful as the issue is weakness and instability rather than muscle spasm. Consent The risks, benefits, and alternatives of a right shoulder cortisone injection were discussed. It was explained that the injection can help relieve inflammation and pain, improve sleep, and allow for effective physical therapy. The patient understood and verbally consented to proceed with the injection. Patient was informed and verbally consented to the use of an ambient scribe for clinic note documentation during this visit. Orders: Orders XR shoulder RT min 2V Today M25.511 - Pain in right shoulder Medications: New ibuprofen 800 mg PO Q8H PRN 90 tabs 3RF pain 30 days S52.209D - Unspecified fracture of shaft of unspecified ulna, subsequent encounter for closed fracture with routine healing ibuprofen 800 mg PO Q8H PRN 90 tabs 3RF pain 30 days S52.209D - Unspecified fracture of shaft of unspecified ulna, subsequent encounter for closed fracture with routine healing Coding Level of Care Code Est Pt Level 3 (75115) Add On Problem Visit Only Diagnoses Tendinitis of right rotator cuff M75.81 CPT Codes Coding - Joint 7: 74158 - Glenohumeral/Tronchanteric Bursa/Intraarticular ([id number])
--- OUTSIDE RECORDS SUMMARY | 2025-06-29 15:52 | XMS_ITS | Encounter Summary ---
Author Organization [facility] Address [address] [place] [address] Care Team Providers Care Dynamometer Mechanic Name Role Phone Wendie Johnson MD Primary Care Provider [phone] Encounter Details Date Type Department Care Team (Late st Contact Info) Description 07/31/2024 Lab Requisition [facility] - Main Lab [address] [place] [phone] Kimberley Miranda MD [address] [facility] [address] [place] [phone] Acute vaginitis Social History Tobacco Use Types [...] vaginalis Negative Negative 08/01/2024 12:47 PM EST [facility] Gardnerella vaginalis Positive(A) Negative 08/01/2024 12:47 PM EST [facility] Cara Species Negative Negative 12:47 PM EST [facility] Swab Vaginal structure / Unknown 07/31/2024 07/31/2024 12:43 PM EST us Kimberley Miranda MD LAB MICROBIOLOGY - GENER AL ORDERABLES Final Result [facility] [address] [place] [address], documented in this encounter Visit Diagnoses Diagnosis Acute vaginitis Unspecified vaginitis and vulvovaginitis documented in this encounter Care Teams Dynamometer Mechanic Relationship Specialty Start Date End Date Wendie Johnson MD [address] [place] [phone] PCP - General Internal Medicine 10/25/15 documented as of this encounter
--- OUTSIDE RECORDS SUMMARY | 2025-06-29 15:52 | XMS_ITS | Encounter Summary ---
Author Organization [facility] Address [address] [place] [phone] Phone Care Team Providers Care Shrub Grower Name Role Phone Arely Bhardwaj MD Primary Care Provider Encounter Details Date Type Department Care Team (Late st Contact Info) Description 02/15/2017 Conversion Encounter [facility] [place] [address] [place] [address] Social History Tobacco Use Types Packs/Day Years [...] on filedocumented in this encounter Care Teams Shrub Grower Relationship Specialty Start Date End Date Arely Bhardwaj MD [address] [place] [address] PCP - General 02/09/17 08/30/22 documented as of this encounter
--- OUTSIDE RECORDS SUMMARY | 2025-06-29 15:52 | XMS_ITS | Encounter Summary ---
Author Organization [facility] Address [address] [place] [address] Phone Care Team Providers Care Band Salvager Name Role Phone Arely Bhardwaj MD Primary Care Provider Encounter Details Date Type Department Care Team (Late st Contact Info) Description 10/06/2009 Documentation [facility] [facility] [place] [address] [place] [address] Family Medicine, Physician [address] [place], [place] [phone] Social History Tobacco Use Types Packs/Day Years [...] on filedocumented in this encounter Care Teams Band Salvager Relationship Specialty Start Date End Date Arely Bhardwaj MD [address] [place] [address] [place] [address] PCP - General 02/09/17 08/30/22 documented as of this encounter
--- OUTSIDE RECORDS SUMMARY | 2025-06-29 15:52 | XMS_ITS | Clinical Summary ---
Author Organization [address] Address [address] [place] [phone] Phone Care Team Providers Care Stretch Box Tender Name Role Phone Wendie Johnson MD Primary Care Provider [phone] Allergies Active Allergy Reactions Criticality Noted Date [...] if needed for anaphylaxis. 1 each 1 Active Active Problems Problem Noted Date Diagnosed [...] Team Description 04/08/2025 Results Follow-Up Adult Medicine [facility] [address] [place] [phone] Rosalee Martinez PA 03/31/2025 3:30 PM EDT Office Visit Adult Medicine [facility] [address] [place] [phone] Rosalee Martinez PA Adult general medical examination (Primary Dx); Alcohol abuse; Moderate persistent asthma, unspecified whether complicated; Chronic shortness of breath; Obesity (BMI 30-39.9); Non-seasonal allergic rhinitis, unspecified trigger; Epigastric pain from Last 3 Months Immunizations Immunization Administration [...] Surgical History Surgery Date Site/Laterality Comments TONSILLECTOMY 2010 OTHER SURGICAL HISTORY 2015 Left left ulnar open reduction OTHER SURGICAL [...] 03/31/2025 3:37 PM EDT Plan of Treatment Health Maintenance [...] EDT Chronic shortness of breath Epigastric pain HM DEPRESSION SCREENING Routine 08/13/2023 from Last 3 Months or Most Recently Relevant to Health Maintenance Results * Thyroid stimulating hormone with reflex to free t4 and free t3 (04/07/2025 9:00 AM EDT) TSH 1.31 0.40 - 4.00 mcIU/mL LAB CHEMISTRY METHOD 04/07/2025 1:17 PM EDT [facility] Blood Venous blood specimen / Unknown Venipuncture / Unknown 04/07/2025 9:00 AM EDT 04/07/2025 9:00 AM EDT us Rosalee CASTRO LAB BLOOD ORDERABLES Final Resul t [facility] [address] [place] [address], * Lipid panel with reflex to direct LDL (04/07/2025 9:00 AM EDT) Cholesterol 139 0 - 200 mg/dL LAB CHEMISTRY METHOD 04/07/2025 12:35 PM [facility] Triglycerides 106 0 - 150 mg/dL LAB CHEMISTRY METHOD 04/07/2025 12:35 PM [facility] HDL 40 >=40 mg/dL LAB CHEMISTRY METHOD 04/07/2025 12:35 PM [facility] LDL Calculated 78 0 - 100 mg/dL LAB CHEMISTRY METHOD 04/07/2025 12:35 PM [facility] Comment:Estimated LDL Calcul ated using equation: Total cholesterol - HDL cholesterol - (Triglycerides/5) VLDL Cholesterol Omid 21.2 mg/dL LAB CHEMISTRY METHOD 04/07/2025 12:35 PM [facility] Non HDL Chol. (LDL+VLDL) 99 <145 mg/dL LAB CHEMISTRY METHOD 04/07/2025 12:35 PM [facility] Chol/HDL Ratio 3.5 0.0 - 4.4 LAB CHEMISTRY METHOD 04/07/2025 12:35 PM [facility] Blood Venous blood specimen / Unknown Venipuncture / Unknown 04/07/2025 9:00 AM EDT 04/07/2025 9:00 AM EDT us Rosalee CASTRO LAB BLOOD ORDERABLES Final Resul t [facility] [address] [place] [address], * (ABNORMAL) CBC auto differential (04/07/2025 9:00 AM EDT) Pathologist [facility] WBC 10.8 4.8 - 10.8 K/mcL LAB HEMETOLOGY METHOD 04/07/2025 11:11 AM EDT [facility] RBC 4.80 3.80 - 4.80 M/mcL LAB HEMETOLOGY METHOD 04/07/2025 11:11 AM [facility] Hemoglobin 14.6 11.5 - 16.0 g/dL LAB HEMETOLOGY METHOD 04/07/2025 11:11 AM [facility] Hematocrit 44.6 35.0 - 47.0 % LAB HEMETOLOGY METHOD 04/07/2025 11:11 AM [facility] MCV 92.1 79.0 - 98.0 FL LAB HEMETOLOGY METHOD 04/07/2025 11:11 AM [facility] MCH 30.2 27.0 - 32.0 pcg LAB HEMETOLOGY METHOD 04/07/2025 11:11 AM [facility] MCHC 32.7 32.0 - 37.0 g/dL LAB HEMETOLOGY METHOD 04/07/2025 11:11 AM [facility] RDW 12.8 11.0 - 15.0 % LAB HEMETOLOGY METHOD 04/07/2025 11:11 AM [facility] Platelets 262 130 - 400 K/mcL LAB HEMETOLOGY METHOD 04/07/2025 11:11 AM [facility] MPV 11.9(H) 7.0 - 11.0 FL LAB HEMETOLOGY METHOD 04/07/2025 11:11 AM [facility] NRBC 0.0 <1.0 % LAB HEMETOLOGY METHOD 04/07/2025 11:11 AM [facility] NRBC Absolute 0.00 <0.10 K/mcL LAB HEMETOLOGY METHOD 04/07/2025 11:11 AM [facility] Neutrophils Relative 67.6 % LAB HEMETOLOGY METHOD 04/07/2025 11:11 AM [facility] Lymphocytes Relative 21.5 % LAB HEMETOLOGY METHOD 04/07/2025 11:11 AM [facility] Monocytes Relative 6.9 % LAB HEMETOLOGY METHOD 04/07/2025 11:11 AM [facility] Eosinophils Relative 2.6 % LAB HEMETOLOGY METHOD 04/07/2025 11:11 AM [facility] Basophils Relative 0.5 % LAB HEMETOLOGY METHOD 04/07/2025 11:11 AM [facility] Immature Granulocytes Relative 0.9 % LAB HEMETOLOGY METHOD 04/07/2025 11:11 AM [facility] Neutrophils Absolute 7.28(H) 1.50 - 7.00 K/mcL LAB HEMETOLOGY METHOD 04/07/2025 11:11 AM [facility] Lymphocytes Absolute 2.32 1.00 - 5.00 K/mcL LAB HEMETOLOGY METHOD 04/07/2025 11:11 AM [facility] Monocytes Absolute 0.74 0.20 - 1.00 K/mcL LAB HEMETOLOGY METHOD 04/07/2025 11:11 AM [facility] Eosinophils Absolute 0.28 0.00 - 0.50 K/mcL LAB HEMETOLOGY METHOD 04/07/2025 11:11 AM EDT [facility] Basophils Absolute 0.05 0.00 - 0.20 K/[facility] LAB HEMETOLOGY METHOD 04/07/2025 11:11 AM EDT [facility] Immature Granulocytes Absolute 0.10(H) 0.00 - 0.03 K/[facility] LAB HEMETOLOGY METHOD 04/07/2025 11:11 AM EDT [facility] Blood Venous blood specimen / Unknown Venipuncture / Unknown 04/07/2025 9:00 AM EDT 04/07/2025 9:00 AM EDT Rosalee CASTRO LAB BLOOD ORDERABLES Final Resul t Performing Organization Address [facility]/ZIP Co de Phone Number [facility] [address] [place] [address], * D-Dimer (04/07/2025 9:00 AM EDT) D-Dimer, Quant (D-DU) 207 <=230 ng/mL DDU LAB COAGULATION METHOD 04/07/2025 11:06 AM EDT [facility] Blood Venous blood specimen / Unknown Venipuncture / Unknown 04/07/2025 9:00 AM EDT 04/07/2025 9:00 AM EDT Narrative [facility] - 04/07/2025 11:06 AM EDT D-Dimer <230 ng/mL (D-Dimer units) is the threshold for exclusion of DVT/PE. D-Dimer may be elevated in: Critically ill, severely infected, trauma patients, DIC, acute CVA, acute IL, unstable angina, AF, old age, , and smoking. D-Dimer may be decreased with: Initiation of heparin therapy and oral anticoagulants. Rosalee CASTRO LAB BLOOD ORDERABLES Final Resul t [facility] [address] [place] [address], [place] [phone] * B-type natriuretic peptide (04/07/2025 9:00 AM EDT) BNP 3 <=100 pcg/mL LAB CHEMISTRY METHOD 04/07/2025 2:25 PM EDT [facility] Blood Venous blood specimen / Unknown Venipuncture / Unknown 04/07/2025 9:00 AM EDT 04/07/2025 9:00 AM EDT us Rosalee CASTRO LAB BLOOD ORDERABLES Final Resul t Performing Organization Address City/[facility]/ZIP Co de Phone Number [facility] [address] [place] [address], [place] [phone] * Lipase (04/07/2025 9:00 AM EDT) Lipase 34 13 - 75 unit/L LAB CHEMISTRY METHOD 04/07/2025 12:31 PM EDT [facility] Blood Venous blood specimen / Unknown Venipuncture / Unknown 04/07/2025 9:00 AM EDT 04/07/2025 9:00 AM EDT us Rosalee CASTRO LAB BLOOD ORDERABLES Final Resul t [facility] [address] [place] [address], [place] [phone] * Amylase (04/07/2025 9:00 AM EDT) Amylase 33 25 - 115 unit/L LAB CHEMISTRY METHOD 04/07/2025 12:31 PM EDT [facility] Blood Venous blood specimen / Unknown Venipuncture / Unknown 04/07/2025 9:00 AM EDT 04/07/2025 9:00 AM EDT us Rosalee CASTRO LAB BLOOD ORDERABLES Final Resul t [facility] [address] [place] [address], * (ABNORMAL) Comprehensive metabolic panel (04/07/2025 9:00 AM EDT) Sodium 138 133 - 145 mmol/L LAB CHEMISTRY METHOD 04/07/2025 12:35 PM [facility] Potassium 4.4 3.5 - 5.5 mmol/L LAB CHEMISTRY METHOD 04/07/2025 12:35 PM [facility] Chloride 107 96 - 110 mmol/L LAB CHEMISTRY METHOD 04/07/2025 12:35 PM [facility] CO2 22 21 - 32 mmol/L LAB CHEMISTRY METHOD 04/07/2025 12:35 PM [facility] Anion Gap 9 3 - 11 LAB CHEMISTRY METHOD 04/07/2025 12:35 PM [facility] Glucose 106(H) 70 - 100 mg/dL LAB CHEMISTRY METHOD 04/07/2025 12:35 PM [facility] BUN 15 5 - 25 mg/dL LAB CHEMISTRY METHOD 04/07/2025 12:35 PM [facility] Creatinine 0.95 0.50 - 1.10 mg/dL LAB CHEMISTRY METHOD 04/07/2025 12:35 PM [facility] eGFR 81 >=60 mL/min/1. 73m2 LAB CHEMISTRY METHOD 04/07/2025 12:35 PM [facility] Comment:Calculation based on the Chronic Kidney Disease Epidemiology Collaboration (CKD-EPI) equation refit without adjustment for race. BUN/Creatinine Ratio 15.8 LAB CHEMISTRY METHOD 04/07/2025 12:35 PM [facility] Calcium 8.7 8.5 - 10.5 mg/dL LAB CHEMISTRY METHOD 04/07/2025 12:35 PM EDT [facility] AST (SGOT) 19 10 - 42 unit/L LAB CHEMISTRY METHOD 04/07/2025 12:35 PM EDT [facility] ALT (SGPT) 24 10 - 60 unit/L LAB CHEMISTRY METHOD 04/07/2025 12:35 PM T [facility] Alkaline Phosphatase 126(H) 42 - 121 unit/L LAB CHEMISTRY METHOD 04/07/2025 12:35 PM EDT [facility] Total Protein 7.3 6.0 - 8.0 g/dL LAB CHEMISTRY METHOD 04/07/2025 12:35 PM [facility] Albumin 4.0 3.2 - 5.0 g/dL LAB CHEMISTRY METHOD 04/07/2025 12:35 PM [facility] Total Bilirubin 0.4 0.0 - 1.4 mg/dL LAB CHEMISTRY METHOD 04/07/2025 12:35 PM T [facility] Blood Venous blood specimen / Unknown Venipuncture / Unknown 04/07/2025 9:00 AM EDT 04/07/2025 9:00 AM EDT Rosalee CASTRO LAB BLOOD ORDERABLES Final Resul t [facility] [address] [place] [address], [place] [phone] * ECG 12 lead (04/02/2025 11:04 AM EDT) Impressions Candice Mobley MA - 04/02/2025 11:04 AM EDT EKG: Results reviewed with Dr. Walters. EKG: Rate 74 bpm. Sinus rhythm. Nonspecific ST-T wave changes. Overall stable compared to previous tracing from 12/18/2022. us Rosalee CASTRO ECG ORDERABLES Final Result * Hm Depression Screening (08/13/2023) Depression Screening abstracted us Historical Provider HEALTH MAINTENANCE Final Result from Last 3 Months or Most Recently Relevant to Health Maintenance Insurance [facility] Care Teams Stretch Box Tender Relationship Specialty Start Date End Date Wendie Johnson MD [address] [place] [phone] PCP - General Internal Medicine 10/25/15
--- OUTSIDE RECORDS SUMMARY | 2025-06-29 15:52 | XMS_ITS | Encounter Summary ---
Author Organization [facility] Address [address] [place] [phone] Phone Care Team Providers Care Yellow Pages Space Salesperson Name Role Phone Arely Bhardwaj MD Primary Care Provider Encounter Details Date Type Department Care Team (Late st Contact Info) Description 11/07/2011 Documentation [facility] [place] Family Medicine [address] [place] [address] Family Medicine, Physician [address], [place] [phone] Social History Tobacco Use Types Packs/Day Years [...] on filedocumented in this encounter Care Teams Yellow Pages Space Salesperson Relationship Specialty Start Date End Date Arely Bhardwaj MD [address] [place] [address] [place] [address] PCP - General 02/09/17 08/30/22 documented as of this encounter
--- OUTSIDE RECORDS SUMMARY | 2025-06-29 15:52 | XMS_ITS | Clinical Summary ---
Author Organization [facility] Address [address] [place] [address] Phone Care Team Providers Care Classics Professor Name Role Phone Unavailable Primary Care Provider [...]
== END 2025-06-29 14:30 | disposition home or self-care (01) ==
LOC: HO.HOS 13:41
PROVIDERS: PCP Internal Medicine; Visit Provider Physician Assistant
DX: M75.81 Other shoulder lesions, right shoulder (principal)
CPT/HCPCS: 20610; 99213

== ENCOUNTER → 2025-06-29 13:43 | Outpatient (BNV) | payer OTHER, SELFPAY | PROVIDERS: Visit Provider Radiology Diagnostic Radiology | DX: M25.511 Pain in right shoulder (principal) | CPT/HCPCS: 73030 ==